=== PATIENT | female | born 1955 | race Caucasian/White ===

== ENCOUNTER 2017-01-22 12:01 | Emergency (ER) | payer OTHER ==
[2017-01-22 12:16] VITALS: BP 112/54
--- NOTE | 2017-01-22 12:35 | UC ---
Abdominal Pain Female HPI - HPI Summary HPI Summary: 62 yo female with the onset of lower abd pain yesterday seems to have localized to RLQ no f/c n/v loose stool x a anorexic no UTI symptoms no abd surgeries - History of Current Complaint Chief Complaint: UCAbdominalPain Stated Complaint: ABDOMINAL PAIN Time Seen by Provider: 01/22/17 12:21 Hx Obtained From: Patient Onset/Duration: Sudden Onset - fairly sudden onset yesterday 1 PM, Lasting Hours Timing: Constant Severity Initially: Severe - 9-10 Severity Currently: Severe Pain Intensity: 8 Pain Scale Used: 0-10 Numeric Location: Discrete At: RLQ, Other Radiates: No Character: Colicy Aggravating Factor(s): Food, Movement, Deep Breaths Alleviating Factor(s): Position Associated Signs and Symptoms: Positive: Diaphoresis - x1, Nausea, Vomiting Allergies/Adverse Reactions: Allergies Allergy/AdvReac Type Severity Reaction Status Date / Time Clarithromycin [From Biaxin] Allergy Nausea Verified 01/22/17 12:16 Home Medications: Home Medications Ibuprofen [Advil] 400 mg PO Q6H PRN 01/22/17 [History Confirmed 01/22/17] PMH/Surg Hx/FS Hx/Imm Hx Previously Healthy: Yes - Surgical History Surgical History: Yes Surgery Procedure, Year, and Place: LAMINECTOMY L1 OR L2; D&C x2; - Family History Known Family History: Positive: Hypertension - Social History Alcohol Use: Occasionally Substance Use Type: None Smoking Status (MU): Never Smoked Tobacco - Immunization History Most Recent Influenza Vaccination: none Review of Systems Constitutional: Negative Skin: Negative Eyes: Negative ENT: Negative Respiratory: Negative Cardiovascular: Negative Gastrointestinal: Abdominal Pain, Vomiting, Nausea Genitourinary: Negative Motor: Negative Neurovascular: Negative Musculoskeletal: Negative Neurological: Negative Psychological: Negative Is Patient Immunocompromised?: No All Other Systems Reviewed And Are Negative: Yes Physical Exam Triage Information Reviewed: Yes Appearance: Ill-Appearing, Pain Distress Vital Signs: Initial Vital Signs Temp 97.7 F 01/22/17 12:10 Pulse 98 01/22/17 12:10 Resp 16 01/22/17 12:10 BP 112/54 01/22/17 12:10 Pulse Ox 100 01/22/17 12:10 Vital Signs Reviewed: Yes Eyes: Positive: Conjunctiva Clear ENT: Positive: Hearing grossly normal. Negative: Nasal congestion, Nasal drainage, Muffled voice, Hoarse voice Neck: Positive: Supple, Nontender, No Lymphadenopathy Respiratory: Positive: Lungs clear, Normal breath sounds, No respiratory distress, No accessory muscle use Cardiovascular: Positive: RRR, No Murmur Abdomen Description: Positive: Soft, Other: - marked tender RLQ>LUQ. Negative: Nontender, CVA Tenderness (R), CVA Tenderness (L) Musculoskeletal: Positive: ROM Intact, No Edema Neurological: Positive: Alert Psychological Exam: Normal Skin Exam: Normal Abd Pain Female Course/Dx - Course Course Of Treatment: pt declines analgesic here. d/w Dr Bennett accepts pt. to [facility] via EMS - Differential Dx/Diagnosis Provider Diagnoses: Abdominal pain of uncertain cause Discharge - Discharge Plan Condition: Fair Disposition: TRANS HIGHER LVL OF CARE FAC Referrals: Leanna Espinal MD [Primary Care Provider] -
[2017-01-22] MEDS ORDERED: NS 0.9% 1000 ML* 1,000 ML IV ONE (12:36)
[2017-01-22] MEDS ORDERED: Ondansetron INJ* 2 MG/ML VIAL IV ONE (12:37)
== END 2017-01-22 13:10 | disposition short-term general hospital (02) ==
LOC: UCEAST 12:01
DX: R10.31 Right lower quadrant pain (principal)
CPT/HCPCS: 81003; 87077; 87086; 99213; G0463

== ENCOUNTER 2017-01-22 13:32 | Inpatient (IN) | payer OTHER ==
[2017-01-22] MEDS ORDERED: NS 0.9% 1000 ML* 2,000 ML IV ONE (15:09)
[2017-01-22 15:18] LABS: Hematocrit 36 % (35-47); Mean Corpuscular HGB Conc 33 g/dl (31-36); Mean Corpuscular Hemoglobin 29 pg (27-31); Mean Corpuscular Volume 87 fL (80-97); Mean Platelet Volume 8 um3 (7.4-10.4); Red Blood Count 4.11 10^6/ul (4.0-5.4); Red Cell Distribution Width 13 % (10.5-15)
[2017-01-22 15:28] LABS: Urine Bacteria 2+ (Absent); Urine Bilirubin Negative (Negative); Urine Glucose Negative (Negative); Urine Nitrite Negative (Negative)
[2017-01-22 15:29] LABS: Albumin 3.9 g/dL (3.2-5.2); BUN/Creatinine Ratio 15.5 (8-20); C Reactive Protein 217.81 mg/L (< 5.00); Calcium 9.1 mg/dL (8.6-10.3); EGFR African American 54.2 (>60); EGFR Non-African American 42.2 (>60); Globulin 2.9 g/dL (2-4); Potassium 3.4 mmol/L (3.5-5.0); Total Bilirubin 0.7 mg/dL (0.2-1.0); Total Protein 6.8 g/dL (6.4-8.9)
--- NOTE | 2017-01-22 15:37 | RAD ---
Indication: Chest pain. 2 views of the chest including dual energy PA views demonstrate no mediastinal shift. Heart is of normal size and configuration. Lungs are clear. IMPRESSION: No active cardiopulmonary disease is noted.
[2017-01-22] MEDS ORDERED: Iodixanol* (CONTRAST) 320 MG/ML 100 ML SDV IV ONE (16:13)
[2017-01-22] MEDS ORDERED: Piperacillin/Tazobac ADVAN(*) 3.375 GM in NS 0.9% 100 ML* 100 ML IVPB ONE (16:33)
[2017-01-22] MEDS ORDERED: Morphine INJ* 4 MG/ML 1 ML CARPUJECT IV ONE (16:33)
[2017-01-22] MEDS ORDERED: Ondansetron INJ* 2 MG/ML VIAL IV ONE (16:33)
[2017-01-22] MEDS ORDERED: Piperacillin/Tazobac (*) 3.375 GM BAG ONE (16:38)
--- NOTE | 2017-01-22 18:11 | RAD ---
INDICATION: Upper abdominal pain. Previous back surgery. COMPARISON: No relevant prior exams available on the [facility] PACS for comparison. TECHNIQUE: Multidetector CT images were obtained from the lung bases to the ischial tuberosities with 85 mL Visipaque 320 IV and oral contrast. Multiplanar reformation. REPORT: Unremarkable visualized inferior thorax. Sharply circumscribed 2.2 cm subcapsular cyst at the RIGHT posterior hepatic segment. Negative for suspicious hepatic lesions or biliary dilatation. No CT abnormality of the gallbladder, pancreas, spleen. Negative for CT abnormality of the upper GI. Mild mural thickening at the terminal ileum which appears secondary to adjacent appendiceal inflammation. Ill-defined 1.2 cm diameter medially extending appendix from the cecum anterior to the iliac vessels consistent with acute appendicitis. Mild periappendiceal inflammatory change. Negative for periappendiceal abscess. Enteric contrast extends to the rectum. Mild thickening at the cecal caput secondary to appendicitis without additional abnormality of the colon. Minimal free fluid at the dependent pelvis. Negative for free air. Negative for hernias. Normal adrenal glands. Symmetric nephrograms and pyelograms. Subcentimeter probable cortical cyst at the posterior midpole the LEFT kidney. No suspicious focal renal lesions evident. Unremarkable ureters, urinary bladder, anteverted uterus, adnexal regions. Negative for lymphadenopathy. Atherosclerotic calcification of normal diameter abdominal aorta and iliac arteries. Physiologic distention of the IVC. Negative for suspicious osseous lesions. Diaz images saved on the [facility] PACS. IMPRESSION: Acute appendicitis without perienteric abscess or resulting bowel obstruction. Results discussed with Dr. Pritchett 01/22/2017 6:08 PM EST
--- NOTE | 2017-01-22 18:18 | ED ---
Luis Medina Gabriel, scribed for Boone Pritchett MD on 01/22/17 at 1509 . Abdominal Pain/Female - HPI Summary HPI Summary: This patient is a 62 year old F BIBA to [facility] accompanied by with a chief complaint of ABD since yesterday at 1300. The patient rates the pain 7/10 in severity. Patient reports diarrhea and nausea. Patient denies melena, vomiting and dysuria. - History of Current Complaint Chief Complaint: EDAbdPain Stated Complaint: ABD PAIN Time Seen by Provider: 01/22/17 14:57 Hx Obtained From: Patient Onset/Duration: Gradual Onset, Still Present Timing: Constant Pain Intensity: 7 Pain Scale Used: 0-10 Numeric Location: Diffuse - through entire ABD Allergies/Adverse Reactions: Allergies Allergy/AdvReac Type Severity Reaction Status Date / Time Clarithromycin [From Biaxin] Allergy Nausea Verified 01/22/17 12:16 Home Medications: Home Medications LORazepam TAB(*) [Ativan 1 MG TAB (*)] 1 mg PO DAILY PRN 01/22/17 [History Confirmed 01/22/17] PMH/Surg Hx/FS Hx/Imm Hx Previously Healthy: No Musculoskeletal History: Denies: Hx Osteoporosis - Surgical History Surgery Procedure, Year, and Place: LAMINECTOMY L1 OR L2; D&C x2; Infectious Disease History: No Infectious Disease History: Denies: Traveled Outside the [place] in Last 30 Days - Family History Known Family History: Positive: Hypertension - Social History Alcohol Use: None Substance Use Type: Reports: None Smoking Status (MU): Never Smoked Tobacco Review of Systems Gastrointestinal: Negative - melena Positive: Abdominal Pain, Diarrhea, Nausea. Negative: Vomiting Negative: dysuria All Other Systems Reviewed And Are Negative: Yes Physical Exam Triage Information Reviewed: Yes Vital Signs On Initial Exam: Initial Vitals Temp Pulse Resp BP Pulse Ox 98.6 F 75 17 127/75 100 01/22/17 13:34 01/22/17 13:34 01/22/17 13:34 01/22/17 13:34 01/22/17 13:34 Vital Signs Reviewed: Yes Appearance: Positive: Well-Appearing, No Pain Distress Skin: Positive: Warm Head/Face: Positive: Normal Head/Face Inspection Eyes: Positive: EOMI Neck: Positive: Nontender Respiratory/Lung Sounds: Positive: Clear to Auscultation, Breath Sounds Present Cardiovascular: Positive: RRR. Negative: Murmur Abdomen Description: Positive: Other: - tender both lower quadrants of the abdomen Musculoskeletal: Positive: Strength/ROM Intact Neurological: Positive: Sensory/Motor Intact, Alert, Oriented to Person Place, Time, CN Intact II-III Psychiatric: Positive: Normal - Vega Coma Scale Best Eye Response: 4 - Spontaneous Best Motor Response: 6 - Obeys Commands Best Verbal Response: 5 - Oriented Coma Scale Total: 15 Diagnostics - Vital Signs Vital Signs Temp Pulse Resp BP Pulse Ox 01/22/17 14:42 99.2 F 79 18 128/55 99 01/22/17 13:34 98.6 F 75 17 127/75 100 - Laboratory Lab Results: Lab Results 01/22/17 01/22/17 01/22/17 Range/Units 14:35 14:35 14:35 WBC 15.0 H (3.5-10.8) 10^3/ul RBC 4.11 (4.0-5.4) 10^6/ul Hgb 12.0 (12.0-16.0) g/dl Hct 36 (35-47) % MCV 87 (80-97) fL MCH 29 (27-31) pg MCHC 33 (31-36) g/dl RDW 13 (10.5-15) % Plt Count 182 (150-450) 10^3/ul MPV 8 (7.4-10.4) um3 Neut % (Auto) 86.0 H (38-83) % Lymph % (Auto) 10.0 L (25-47) % Alger % (Auto) 3.6 (1-9) % Eos % (Auto) 0.1 (0-6) % Baso % (Auto) 0.3 (0-2) % Absolute Neuts (auto) 12.9 H (1.5-7.7) 10^3/ul Absolute Lymphs (auto) 1.5 (1.0-4.8) 10^3/ul Absolute Monos (auto) 0.5 (0-0.8) 10^3/ul Absolute Eos (auto) 0 (0-0.6) 10^3/ul Absolute Basos (auto) 0 (0-0.2) 10^3/ul Absolute Nucleated RBC 0 10^3/ul Nucleated RBC % 0 Sodium 137 (133-145) mmol/L Potassium 3.4 L (3.5-5.0) mmol/L Chloride 103 (101-111) mmol/L Carbon Dioxide 26 (22-32) mmol/L Anion Gap 8 (2-11) mmol/L BUN 20 (6-24) mg/dL Creatinine 1.29 H (0.51-0.95) mg/dL Est GFR ( Amer) 54.2 (>60) Est GFR (Non-Af Amer) 42.2 (>60) BUN/Creatinine Ratio 15.5 (8-20) Glucose 100 (70-100) mg/dL Lactic Acid 1.3 (0.5-2.0) mmol/L Calcium 9.1 (8.6-10.3) mg/dL Total Bilirubin 0.70 (0.2-1.0) mg/dL AST 18 (13-39) U/L ALT 15 (7-52) U/L Alkaline Phosphatase 65 (34-104) U/L C-Reactive Protein 217.81 H (< 5.00) mg/L Total Protein 6.8 (6.4-8.9) g/dL Albumin 3.9 (3.2-5.2) g/dL Globulin 2.9 (2-4) g/dL Albumin/Globulin Ratio 1.3 (1-3) Lipase 14 (11.0-82.0) U/L Urine Color Urine Appearance Urine pH (5-9) Ur Specific Macfarlan (1.010-1.030) Urine Protein (Negative) Urine Ketones (Negative) Urine Blood (Negative) Urine Nitrate (Negative) Urine Bilirubin (Negative) Urine Urobilinogen (Negative) Ur Leukocyte Esterase (Negative) Urine WBC (Auto) (Absent) Urine RBC (Auto) (Absent) Ur Squamous Epith Cells (Absent) Urine Bacteria (Absent) Urine Glucose (Negative) 01/22/ Range/Units 15:17 WBC (3.5-10.8) 10^3/ul RBC (4.0-5.4) 10^6/ul Hgb (12.0-16.0) g/dl Hct (35-47) % MCV (80-97) fL MCH (27-31) pg MCHC (31-36) g/dl RDW (10.5-15) % Plt Count (150-450) 10^3/ul MPV (7.4-10.4) um3 Neut % (Auto) (38-83) % Lymph % (Auto) (25-47) % Alger % (Auto) (1-9) % Eos % (Auto) (0-6) % Baso % (Auto) (0-2) % Absolute Neuts (auto) (1.5-7.7) 10^3/ul Absolute Lymphs (auto) (1.0-4.8) 10^3/ul Absolute Monos (auto) (0-0.8) 10^3/ul Absolute Eos (auto) (0-0.6) 10^3/ul Absolute Basos (auto) (0-0.2) 10^3/ul Absolute Nucleated RBC 10^3/ul Nucleated RBC % Sodium (133-145) mmol/L Potassium (3.5-5.0) mmol/L Chloride (101-111) mmol/L Carbon Dioxide (22-32) mmol/L Anion Gap (2-11) mmol/L BUN (6-24) mg/dL Creatinine (0.51-0.95) mg/dL Est GFR ( Amer) (>60) Est GFR (Non-Af Amer) (>60) BUN/Creatinine Ratio (8-20) Glucose (70-100) mg/dL Lactic Acid (0.5-2.0) mmol/L Calcium (8.6-10.3) mg/dL Total Bilirubin (0.2-1.0) mg/dL AST (13-39) U/L ALT (7-52) U/L Alkaline Phosphatase (34-104) U/L C-Reactive Protein (< 5.00) mg/L Total Protein (6.4-8.9) g/dL Albumin (3.2-5.2) g/dL Globulin (2-4) g/dL Albumin/Globulin Ratio (1-3) Lipase (11.0-82.0) U/L Urine Color Straw Urine Appearance Clear Urine pH 6.0 (5-9) Ur Specific Macfarlan 1.006 L (1.010-1.030) Urine Protein Negative (Negative) Urine Ketones Trace H (Negative) Urine Blood 2+ H (Negative) Urine Nitrate Negative (Negative) Urine Bilirubin Negative (Negative) Urine Urobilinogen Negative (Negative) Ur Leukocyte Esterase Trace H (Negative) Urine WBC (Auto) 1+(6-10/hpf) H (Absent) Urine RBC (Auto) 1+(3-5/hpf) H (Absent) Ur Squamous Epith Cells Present H (Absent) Urine Bacteria 2+ H (Absent) Urine Glucose Negative (Negative) Result Diagrams: 01/22/17 14:35 01/22/17 14:35 Lab Statement: Any lab studies that have been ordered have been reviewed, and results considered in the medical decision making process. - Radiology CXR Radiology Interpretation Completed By: Radiologist - No active cardiopulmonary disease is noted. ED physician has reviewed this radiology report and agrees. - CT CT ABD/Pelvis CT Interpretation Completed By: Radiologist - Acute appendicitis without perienteric abscess or resulting bowel obstruction. ED physician has reviewed this radiology report and agrees. Abdominal Pain Fem Course/Dx - Course Course Of Treatment: 62 yr old with appendicitis. General surgery Dr Simental notified at 1810 and he will see the patient. - Diagnoses Provider Diagnoses: Acute appendicitis Discharge - Discharge Plan Condition: Good Disposition: ADMITTED TO [facility] Referrals: Leanna Espinal MD [Primary Care Provider] - The documentation as recorded by the Luis harris Gabriel accurately reflects the service I personally performed and the decisions made by Shreyas mckeon Walter, MD.
[2017-01-22] MEDS ORDERED: Bupivacaine 0.25% SDV* 30 ML ONE (18:21)
[2017-01-22] MEDS ORDERED: fentaNYL* 50 MCG/ML 2 ML VIAL (100 MCG VIAL) ONE (19:05)
[2017-01-22] MEDS ORDERED: Midazolam* 1 MG/ML 2 ML VIAL (2 MG) ONE (19:05)
[2017-01-22] MEDS ORDERED: Scopolamine 1.5 mg* PATCH ONE (19:06)
[2017-01-22] MEDS ORDERED: Rocuronium* 10 MG/ML VIAL ONE (19:08)
[2017-01-22] MEDS ORDERED: Dexamethasone IV* 4 MG/ML 1 ML (4 MG) ONE (19:30)
[2017-01-22] MEDS ORDERED: Glycopyrrolate IV* 0.2 MG/ML 1 ML VIAL ONE (19:47)
[2017-01-22] MEDS ORDERED: Neostigmine Methylsulfate* 2 MG/2 ML SYRINGE ONE (19:47)
[2017-01-22] MEDS ORDERED: Ondansetron INJ* 2 MG/ML VIAL ONE (19:47)
[2017-01-22] MEDS ORDERED: Propofol* 10 MG/ML 20 ML BTL IV PUSH ONE (19:47)
[2017-01-22] MEDS ORDERED: Ketorolac INJ* 30 MG/ML 1 ML VIAL ONE (19:47)
[2017-01-22] MEDS ORDERED: fentaNYL* 50 MCG/ML 2 ML VIAL (100 MCG VIAL) IV PRN (19:57)
[2017-01-22] MEDS ORDERED: HYDROmorphone INJ* 1 MG/ML CARPUJECT SYRINGE IV PRN (19:57)
[2017-01-22] MEDS ORDERED: diPHENhydraMINE IV* 50 MG/ML 1 ml VIAL (BENADRYL) IV PRN (19:57)
[2017-01-22] MEDS ORDERED: Morphine INJ* 2 MG/ML 1 ML SYRINGE (TWO MG - NEW SYRINGE VERSION) IV PRN (21:54)
[2017-01-22] MEDS: NS 0.9% 1000 ML* 1,000 ML IV SCH (22:30)
[2017-01-22] MEDS ORDERED: Zosyn per Pharmacy* NOTE FOLLOW UP PRN (23:19)
[2017-01-22] MEDS: Piperacillin/Tazobac ADVAN(*) 3.375 GM in NS 0.9% 100 ML* 100 ML IVPB SCH (23:34)
[2017-01-23] MEDS: Acetaminophen TAB* 325 MG PO PRN ×3 (02:45→19:29)
--- NOTE | 2017-01-23 02:53 | HP ---
CC: [facility]; Dr. Leanna Espinal at the [facility] * HISTORY AND PHYSICAL: DATE OF ADMISSION: 01/22/17 REASON FOR CONSULTATION/ADMISSION: Lower quadrant abdominal pain, worse on the right. 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 She states this pain started yesterday with generalized abdominal pain about 1 o 'clock in the afternoon. This was associated with some nausea without persistent vomiting. She had 1 loose bowel movement yesterday. She slept fairly well yesterday, but the pain became more severe in the right lower quadrant when she woke up this morning and she went to the urgent care center and was sent to the emergency room for further evaluation. She denies any fevers, shakes or chills. She has had no urinary complaints. She is postmenopausal. There has been no vaginal bleeding. In the emergency room, she was noted to be afebrile. Her heart rate was in the low 90s with a systolic blood pressure of 111/47. Laboratory values include a white blood cell count of 15,000 with a slight shift. Lactic acid was normal. She has elevated C-reactive protein at 217. BUN and creatinine of 20 and 1.3 and her LFTs were normal. She does state that several months ago, she had some similar lower abdominal discomfort that lasted for about 24 hours and resolved spontaneously. She did see her motor adjuster at that time and had a pelvic ultrasound. I do not have these results. Apparently, this was in the office and this was unremarkable, and her pain was not felt to be of gynecologic origin. She underwent a CT scan of the abdomen and pelvis. I did review these images. This shows findings consistent with acute appendicitis with a dilated appendix with some periappendiceal inflammation in the right lower quadrant. There was some free fluid in the pelvis, also noted was a cyst in the right liver. Surgical consultation was obtained. PAST MEDICAL HISTORY: Anxiety. PAST SURGICAL HISTORY: Low back surgery. MEDICATIONS: Include: 1. Ativan 1 mg p.r.n. 2. Ibuprofen p.r.n. ALLERGIES: She is allergic to BIAXIN. SOCIAL HISTORY: She does not use tobacco or alcohol. She is , has grown children. 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 REVIEW OF SYSTEMS: Cerebrovascular: No dizziness or visual disturbances. Cardiovascular: No chest pain, shortness of breath. Pulmonary: No wheezing or hemoptysis. GI: As per above. She has no chronic abdominal discomfort. She has had no change in her bowel habits. She underwent a colonoscopy about 5 years ago, which was normal and is on a routine screening and these are to be done on a routine screening basis of average risk. PHYSICAL EXAMINATION GENERAL: She is a slender female who appears to be somewhat uncomfortable, but awake, alert and conversive, oriented x3. VITAL SIGNS: She is afebrile, pulse 94, blood pressure 111/47. HEENT: Her oral mucosa is dry. Sclerae anicteric. LUNGS: Clear to auscultation with normal respiratory effort. HEART: Regular rate and rhythm without murmurs, rubs, or gallops. ABDOMEN: Slightly distended and firm. She has no prior surgical incisions or hernias. She has diminished bowel sounds throughout. There are no hernias noted. She has tenderness in the right lower quadrant and suprapubic area, but worse on the right. She has some voluntary guarding and rigidity. There is mild tenderness in the left lower quadrant as well. There is no generalized peritoneal irritation. EXTREMITIES: Show no cyanosis or edema. LABORATORY DATA: I did review the images of the CT scan. IMPRESSION: Acute appendicitis. PLAN: I had a long discussion with the patient and her who was present in the emergency room about her history, physical exam and workup that is all consistent with acute appendicitis. I am not certain of the etiology of the discomfort she had several months ago, but that had resolved. It certainly may have been related to the appendix as well. After our discussion about the pathophysiology of acute appendicitis and the findings, I do recommend that she undergo a laparoscopic appendectomy this evening and they are in agreement. Laparoscopic appendectomy. I discussed the procedure with the patient and her . The risks of but not limited to bleeding, infection, intraabdominal abscess formation, injury to peritoneal and retroperitoneal structures, possibilities of an open procedure, possibility of other indicated surgical procedures that may need to be performed that would be done depending on clinic findings at laparoscopy. We also discussed the possibility of an open appendectomy. Risks of general anesthesia, deep vein thrombosis, hospital stay and recovery times were also discussed briefly. We will proceed this evening. [id number]/[facility] #: [id number] FA[facility]TON HOSPITALCurtis
[2017-01-23 05:12] LABS: Hematocrit 32 % (35-47); Hemoglobin 10.9 g/dl (12.0-16.0); Mean Corpuscular HGB Conc 34 g/dl (31-36); Mean Corpuscular Hemoglobin 30 pg (27-31); Mean Corpuscular Volume 88 fL (80-97); Mean Platelet Volume 8 um3 (7.4-10.4); Red Blood Count 3.65 10^6/ul (4.0-5.4); Red Cell Distribution Width 13 % (10.5-15); White Blood Count 13.7 10^3/ul (3.5-10.8)
[2017-01-23 05:27] LABS: BUN/Creatinine Ratio 15.8 (8-20); Calcium 8.2 mg/dL (8.6-10.3); EGFR African American 71.9 (>60); EGFR Non-African American 55.9 (>60); Potassium 4.1 mmol/L (3.5-5.0)
[2017-01-23] MEDS: NS 0.9% 1000 ML* 1,000 ML IV SCH ×3 (06:48→22:58)
[2017-01-23] MEDS: Piperacillin/Tazobac ADVAN(*) 3.375 GM in NS 0.9% 100 ML* 100 ML IVPB SCH ×3 (07:19→22:55)
[2017-01-23] MEDS ORDERED: Influenza VAC *QUAD* 2017-18* 0.5 ML SYRINGE IM ONE (09:00)
[2017-01-23] MEDS ORDERED: oxyCODONE/Acetamin 5/325 MG* TAB PO PRN (09:23)
--- NOTE | 2017-01-23 09:30 | PN ---
Progress Note - Progress Note Date of Service: 01/23/17 SOAP: Subjective: Feels better today Incisional pain controlled with tylenol Tolerating some liquids Objective: Temp Pulse Resp BP Pulse Ox 98.1 F 72 18 106/54 94 01/23/17 07:47 01/23/17 07:47 01/23/17 08:00 01/23/17 07:47 01/23/17 07:47 Intake & Output 01/21/17 01/22/17 01/23/17 01/24/17 06:59 06:59 06:59 06:59 Intake Total 5295 Output Total 335 Balance 4960 Weight 150 lb Intake: IV Fluids 5045 LR 1850 Oral 250 Output: ANDREW #1 85 Urine 250 PEX: Comfortable Awake and alert Lungs are clear Abd is soft and slightly distended. A few bowel sounds are present. Incisions are clean and dry. ANDREW in place with thin serous fluid in bulb Ext without edema Laboratory Last Values WBC 13.7 10^3/ul (3.5-10.8) H 01/23/17 04:45 RBC 3.65 10^6/ul (4.0-5.4) L 01/23/17 04:45 Hgb 10.9 g/dl (12.0-16.0) L 01/23/17 04:45 Hct 32 % (35-47) L 01/23/17 04:45 MCV 88 fL (80-97) 01/23/17 04:45 MCH 30 pg (27-31) 01/23/17 04:45 MCHC 34 g/dl (31-36) 01/23/17 04:45 RDW 13 % (10.5-15) 01/23/17 04:45 Plt Count 164 10^3/ul (150-450) 01/23/17 04:45 MPV 8 um3 (7.4-10.4) 01/23/17 04:45 Neut % (Auto) 92.4 % (38-83) H 01/23/17 04:45 Lymph % (Auto) 6.4 % (25-47) L 01/23/17 04:45 Sharkey % (Auto) 1.0 % (1-9) 01/23/17 04:45 Eos % (Auto) 0 % (0-6) 01/23/17 04:45 Baso % (Auto) 0.2 % (0-2) 01/23/17 04:45 Absolute Neuts (auto) 12.7 10^3/ul (1.5-7.7) H 01/23/17 04:45 Absolute Lymphs (auto) 0.9 10^3/ul (1.0-4.8) L 01/23/17 04:45 Absolute Monos (auto) 0.1 10^3/ul (0-0.8) 01/23/17 04:45 Absolute Eos (auto) 0 10^3/ul (0-0.6) 01/23/17 04:45 Absolute Basos (auto) 0 10^3/ul (0-0.2) 01/23/17 04:45 Absolute Nucleated RBC 0.01 10^3/ul 01/23/17 04:45 Nucleated RBC % 0 01/23/17 04:45 Sodium 135 mmol/L (133-145) 01/23/17 04:45 Potassium 4.1 mmol/L (3.5-5.0) 01/23/17 04:45 Chloride 106 mmol/L (101-111) 01/23/17 04:45 Carbon Dioxide 20 mmol/L (22-32) L 01/23/17 04:45 Anion Gap 9 mmol/L (2-11) 01/23/17 04:45 BUN 16 mg/dL (6-24) 01/23/17 04:45 Creatinine 1.01 mg/dL (0.51-0.95) H 01/23/17 04:45 Est GFR ( Amer) 71.9 (>60) 01/23/17 04:45 Est GFR (Non-Af Amer) 55.9 (>60) 01/23/17 04:45 BUN/Creatinine Ratio 15.8 (8-20) 01/23/17 04:45 Glucose 137 mg/dL (70-100) H 01/23/17 04:45 Lactic Acid 1.3 mmol/L (0.5-2.0) 01/22/17 14:35 Calcium 8.2 mg/dL (8.6-10.3) L 01/23/17 04:45 Total Bilirubin 0.70 mg/dL (0.2-1.0) 01/22/17 14:35 AST 18 U/L (13-39) 01/22/17 14:35 ALT 15 U/L (7-52) 01/22/17 14:35 Alkaline Phosphatase 65 U/L (34-104) 01/22/17 14:35 C-Reactive Protein 217.81 mg/L (< 5.00) H 01/22/17 14:35 Total Protein 6.8 g/dL (6.4-8.9) 01/22/17 14:35 Albumin 3.9 g/dL (3.2-5.2) 01/22/17 14:35 Globulin 2.9 g/dL (2-4) 01/22/17 14:35 Albumin/Globulin Ratio 1.3 (1-3) 01/22/17 14:35 Lipase 14 U/L (11.0-82.0) 01/22/17 14:35 Urine Color Straw 01/22/17 15:17 Urine Appearance Clear 01/22/17 15:17 Urine pH 6.0 (5-9) 01/22/17 15:17 Ur Specific Davy 1.006 (1.010-1.030) L 01/22/17 15:17 Urine Protein Negative (Negative) 01/22/17 15:17 Urine Ketones Trace (Negative) H 01/22/17 15:17 Urine Blood 2+ (Negative) H 01/22/17 15:17 Urine Nitrate Negative (Negative) 01/22/17 15:17 Urine Bilirubin Negative (Negative) 01/22/17 15:17 Urine Urobilinogen Negative (Negative) 01/22/17 15:17 Ur Leukocyte Esterase Trace (Negative) H 01/22/17 15:17 Urine WBC (Auto) 1+(6-10/hpf) (Absent) H 01/22/17 15:17 Urine RBC (Auto) 1+(3-5/hpf) (Absent) H 01/22/17 15:17 Ur Squamous Epith Cells Present (Absent) H 01/22/17 15:17 Urine Bacteria 2+ (Absent) H 01/22/17 15:17 Urine Glucose Negative (Negative) 01/22/17 15:17 Assessment: POD# 1 s/p lap appy for acute appendicitis with purulent peritonitis Plan: Continue IV Zosyn Increase po, activity PPI and subq heparin Leave ANDREW in for now OR findings discussed with patient and her .
[2017-01-23] MEDS: Famotidine IV* 10 MG/ML 2 ML (20 mg) IV SLOW PU SCH ×2 (10:24→21:06)
[2017-01-23] MEDS: Heparin VIAL(*) 5000 UNITS/ML VIAL (FIVE THOUSAND) SUBCUT SCH ×2 (15:00→22:55)
[2017-01-23] MEDS: Ketorolac INJ* 15 MG/ML 1 ML VIAL IV PUSH PRN (16:48)
--- NOTE | 2017-01-23 18:05 | OP ---
CC: Dr. Leanna Espinal * DATE OF OPERATION: 01/22/17 - ROOM #334 DATE OF : 59 SURGEON: Johan Simental MD ANESTHESIOLOGIST: Dr. Darden. ANESTHESIA: General with local. PRE-OP DIAGNOSIS: Acute appendicitis. POST-OP DIAGNOSIS: Acute retrocecal appendicitis with purulent peritonitis. OPERATIVE PROCEDURE: Laparoscopic appendectomy. ESTIMATED BLOOD LOSS: Minimal. IV FLUIDS: 2 L of crystalloid. SPECIMENS: Appendix. DRAINS: #10 ANDREW drain in the right lower quadrant. WOUND CLASSIFICATION: IV. COMPLICATIONS: None. FINDINGS: There was noted to be purulent fluid in the pelvis, right lower quadrant extending up along the right lateral gutter over the liver. There appeared to be some chronic inflammation involving the cecum to the lateral anterior wall from apparent previous inflammatory process. The appendix was retrocecal but did not show evidence of perforation or gangrene. BRIEF HISTORY: Marilee SimiQuin is a 62-year-old woman who presented to the emergency room with over 24 hours of severe lower quadrant abdominal discomfort. This started some time early yesterday and became quite severe. [facility] to the emergency room. She was noted to have significant tenderness in lower quadrants, right greater than left and white blood cell count of 15,000. A CAT scan of the abdomen and pelvis showed findings consistent with acute appendicitis with free pelvic fluid and no other acute findings. Of note, she states about 2 months ago, she had a similar episode of pain. It lasted about 24 hours and made her quite uncomfortable but resolved spontaneously. She since had a gynecologic ultrasound, which was unremarkable. After reviewing her history and physical exam as well as CT scan findings, she is now to be taken to the operating room for an appendectomy. The procedure including the risks and benefits were discussed with the patient and her and documented in the preoperative history and physical. DESCRIPTION OF PROCEDURE: Written informed consent was obtained, the abdomen was marked with indelible ink, and preoperative antibiotics had been administered in the emergency room. The patient was taken to the operating room and placed in the supine position. Sequential compression devices and a warming blanket were applied. General anesthesia was administered, and the abdomen was prepped and draped in the usual sterile fashion. Time-out verification was completed. Initially, a small transverse incision was made just above the umbilicus. The midline fascia was divided and the peritoneal cavity was entered under direct vision. A 12-mm blunt port was inserted and the abdomen was insufflated to 15 mmHg. Camera was inserted and it was obvious that there was quite a bit of purulence consistent with purulent peritonitis in the pelvis, right lower quadrant extending up to the liver edge. The omentum was adherent to the anterior abdominal wall and this was taken down bluntly. I placed a 5 mm port in the left lower abdominal wall and a second 5 mm port in the suprapubic position. The omentum was then freed up from its acute adhesions and the patient was placed in Trendelenburg and this reflected up nicely along with transverse colon. Terminal ileum did appear to be normal, however, it was inflamed and although was somewhat edematous, quite adherent to the cecum and to the lateral pelvic wall. Also noted was purulence and some thickening along the cecum to the right lateral abdominal wall, which appeared to be more chronic in nature. I was able to visualize the uterus and the right ovary and fallopian tube. These were normal. What I could see of the sigmoid colon was also unremarkable. When I was able to reflect the terminal ileum up out of the pelvis, there was quite a bit of fibrin and "rind" adherent to the retroperitoneum and lateral anterior wall. I needed to divide some attachments from the terminal ileum to the lateral abdominal wall with sharp dissection to follow this up to the cecum. Also noted in the cecum, there appeared to have some chronic inflammatory adhesions to the lateral abdominal wall, not permitting me to actually identify the appendix, but once I was able to divide some of these sharply to reflect the cecum up more superiorly, I was able to find underneath the terminal ileum and cecum a short stubby appendix, which was inflamed and indurated and its mesentery was quite edematous. The appendix did appear to have extended down into the area with quite a bit of the fibrin/rind deposition consistent with acute upon chronic inflammation. I then proceeded to further mobilize the lateral cecal attachments to identify and follow the appendix up underneath the cecum and went back into its retrocecal position. Care was taken to prevent injury to the cecum and the terminal ileum. Once I followed the appendix up underneath the cecum to its base, the cecal serosa appeared to be soft and supple and once I satisfied myself, the entire appendix was dissected. I divided the base with EndoGIA purple load of a 45 mm stapler. The appendix was placed in the EndoCatch bag and brought out through the umbilical incision. I then irrigated the right lower quadrant and pelvis all the way up around the liver and gallbladder area until clear. Staple line appeared to be intact without bleeding. I have examined the area of the cecum, which I had mobilized up along the lateral anterior wall and there appeared to be no evidence of injury. The terminal ileum once again appeared to be unremarkable other than being edematous. A #10 ANDREW drain was placed into the pelvis and brought out through a stab wound in the right lower quadrant of the abdominal wall. All ports were then removed under direct vision of the camera. There was no abdominal wall bleeding. The umbilical fascia was closed with interrupted 0 Polysorb suture. The skin at all 3 incisions was approximated with subcuticular 4- 0 Vicryl suture. Steri-Strips were applied. A drain sponge was also placed. The patient tolerated the procedure well and was taken to the recovery room in stable condition. [id number]/[facility] #: [id number] DEREK
[2017-01-23] MEDS: Ondansetron INJ* 2 MG/ML VIAL IV PRN (21:06)
[2017-01-23] MEDS ORDERED: LORazepam TAB(*) 1 MG PO PRN (22:27)
[2017-01-23] MEDS ORDERED: LORazepam TAB(*) 1 MG ONE (22:54)
--- NOTE | 2017-01-24 04:25 | PN ---
Progress Note - Progress Note Date of Service: 01/24/17 Note: Asked by Dr. Gil to see patient re dyspnea, tachypnea, and anxiety. Patient is post-op day 2 from appendectomy, for perforated appendicitis. Overnight she had 2 panic attacks, did not respond to ativan. At baseline a home , occasionally uses ativan for panic. Within last hour, has had some dyspnea, and O2 sat dropping in low 90s, improved w/ O2 2-3 L NC. Denies h/o asthma, COPD, non-smoker. Denies leg pain or swelling. Denies chest pain, has mild abdominal pain. Tolerating clear liquid diet, has IV fluid running at 125 ml/hr. Patient has been oriented to place/time/etc, but has been somewhat confused per nursing. While I was in the room, she was mentioning her as if he might be here, though it is the middle of the night. Selected Entries 01/24/17 01/24/17 01/24/17 01:09 02:59 03:29 Temperature 36.9 C 36.6 C Pulse Rate 73 84 Respiratory 15 26 16 Rate Blood Pressure 132/57 139/71 (mmHg) O2 Sat by Pulse 92 93 Oximetry Patient on Room No: 3L No Air Laboratory Tests 01/22/17 01/22/17 01/23/17 14:35 14:35 04:45 WBC 15.0 H 13.7 H Hgb 10.9 L Hct 32 L Plt Count 164 Creatinine 1.29 H 01/23/17 04:45 WBC Hgb Hct Plt Count Creatinine 1.01 H Alert, no respiratory distress Walking quickly to bathroom, not paying attention to IV pole and tubing. Neck: no JVF Chest: clear, no rales or wheezes Heart; RRR, no murmur Abdo: soft, mild tenderness RLQ, ANDREW drain in place No peripheral edema, no calf tenderness A/P: Dyspnea: differential includes anxiety, volume overload, PE. Will cut IVF to 30 ml/hr, have chest X-ray. In AM checking BNP, CBC, CMP. May need CTA chest. Anxiety and confusion: she may be withdrawing from alcohol, though she denies alcohol use on admission. She seems a bit young for hospital-acquired delirium. Will observe, use additional ativan if needed. Hospitalists will follow later in day.
[2017-01-24] MEDS: NS 0.9% 1000 ML* 1,000 ML IV SCH (05:20)
[2017-01-24] MEDS: Acetaminophen TAB* 325 MG PO PRN ×2 (06:03→15:26)
[2017-01-24] MEDS: Heparin VIAL(*) 5000 UNITS/ML VIAL (FIVE THOUSAND) SUBCUT SCH ×3 (06:04→21:26)
[2017-01-24 06:32] LABS: Albumin 3.1 g/dL (3.2-5.2); BUN/Creatinine Ratio 16.5 (8-20); Calcium 8.4 mg/dL (8.6-10.3); EGFR African American 61.9 (>60); EGFR Non-African American 48.1 (>60); Globulin 2.7 g/dL (2-4); Potassium 3.9 mmol/L (3.5-5.0); Total Bilirubin 0.4 mg/dL (0.2-1.0); Total Protein 5.8 g/dL (6.4-8.9)
[2017-01-24] MEDS: Piperacillin/Tazobac ADVAN(*) 3.375 GM in NS 0.9% 100 ML* 100 ML IVPB SCH ×3 (07:37→23:10)
[2017-01-24] MEDS: Famotidine IV* 10 MG/ML 2 ML (20 mg) IV SLOW PU SCH ×2 (07:38→19:47)
--- NOTE | 2017-01-24 09:06 | RAD ---
INDICATION: Dyspnea COMPARISON: Chest x-ray dated January 22, 2017 TECHNIQUE: PA and lateral views of the chest were obtained. FINDINGS: The heart and mediastinum are normal in size and contour. There has been interval appearance of density overlying the mid-level and bilateral lower lungs. Pleural-based horizontal linear density at the lateral mid-level right lung could be consistent with a "Jung B Line". There is bibasilar costophrenic angle blunting, worse at the left than the right. Visualized bones are normal for the patient's age. There is no radiographic evidence of free air beneath the diaphragm again seen as calcified atherosclerosis overlying the arch of the aorta. IMPRESSION: THE CONSTELLATION OF CHEST X-RAY FINDINGS ARE CONSISTENT WITH INTERVAL DEVELOPMENT OF PULMONARY EDEMA AND LEFT GREATER THAN RIGHT SMALL PLEURAL EFFUSIONS RELATIVE TO THE JANUARY 22, 2017 CHEST X-RAY.
--- NOTE | 2017-01-24 10:10 | PN ---
Subjective Date of Service: 01/24/17 Interval History: Ms. Treviño states that she is feeling well this morning. She agrees that she has had some confusion overnight but is feeling better this morning. She denies chest pain, SOB, or nausea. She has some mild lower right quadrant abdominal pain. Objective Active Medications: Acetaminophen (Tylenol Tab*) 650 mg PO Q6H PRN Famotidine (Pepcid Iv*) 20 mg IV SLOW PU BID [facility] Heparin Sodium (Porcine) (Heparin Vial(*)) 5,000 units SUBCUT Q8HR [facility] Piperacillin Sod/Tazobactam (Sod 3.375 gm/ Sodium Chloride) 100 mls @ 25 mls/ hr IVPB Q8H [facility]CED Sodium Chloride (Ns 0.9% 1000 Ml*) 1,000 mls @ 30 mls/hr IV Q24H [facility] Ketorolac Tromethamine (Toradol Inj*) 15 mg IV PUSH Q6H PRN Lorazepam (Ativan Tab(*)) 1 mg PO DAILY PRN Morphine Sulfate (Morphine Inj (Syringe)*) 2 mg IV Q1H PRN Ondansetron HCl (Zofran Inj*) 4 mg IV Q6H PRN Oxycodone/Acetaminophen (Percocet 5/325 Tab*) 1 tab PO Q4H PRN Pharmacy Consult (Zosyn Per Pharmacy*) 1 note FOLLOW UP . PRN Vital Signs: Temp Pulse Resp BP Pulse Ox 97.8 F 84 16 139/71 93 01/24/17 03:29 01/24/17 03:29 01/24/17 03:29 01/24/17 03:29 01/24/17 03:29 Oxygen Devices in Use Now: Nasal Cannula Appearance: Female sitting up in chair in NAD Eyes: No Scleral Icterus Ears/Nose/Mouth/Throat: Mucous Membranes Moist Neck: Trachea Midline Respiratory: Symmetrical Chest Expansion and Respiratory Effort, Clear to Auscultation Cardiovascular: NL Sounds; No Murmurs; No JVD, No Edema Abdominal: - - Soft, minimal tenderness, BS +, ANDREW with serosanginous drainage Lymphatic: No Cervical Adenopathy Extremities: No Edema Skin: - - steri-strips to lap incisions CDI Neurological: Alert and Oriented x 3, NL Muscle Strength and Tone Nutrition: Taking PO's Result Diagrams: 01/23/17 04:45 01/24/17 06:00 Additional Lab and Data: Vital Signs: Temp Pulse Resp BP Pulse Ox 97.8 F 84 16 139/71 93 01/24/17 03:29 01/24/17 03:29 01/24/17 03:29 01/24/17 03:29 01/24/17 03:29 Assess/Plan/Problems-Billing Assessment: Ms. Treviño is a 62 yo female with a PMH of anxiety who was admitted on with acute appendicitis. Hospital Medicine consulted on 01/24/17 after an episode of confusion with tachypnea and mild hypoxia with concern for anxiety attack. - Patient Problems (1) Appendicitis Comment: - She remains afebrile, no tachycardia, minimal pain. - S/P lap appy with Dr. Simental on 01/22/17. Operative findings of purulent drainage in abdomen with evidence of acute on chronic inflammation. (2) Anxiety Comment: - Continue home ativan. (3) Delirium Comment: - Patient with confusion overnight consistent with delirium. - Patient has refused narcotics. No other delirogenic agents ordered. - Supportive care. (4) DVT prophylaxis Comment: - Heparin SQ. (5) Full code status Status and Disposition: Inpatient. Disposition per surgery.
--- NOTE | 2017-01-24 11:00 | PN ---
Progress Note - Progress Note Date of Service: 01/24/17 SOAP: Subjective: Episode of confusion after Ativan last PM then nurse concerned about respiratory status. Hospitalist called to evaluate and determined to be combination of panic attack and delirium. Better now. She has adequate pain control without narcotics and does not want them for fear of nausea. She would like to eat. She is passing flatus. Objective: Vital Signs Temp 97.6 F 01/24/17 07:25 Pulse 54 01/24/17 07:25 Resp 18 01/24/17 07:45 BP 133/55 01/24/17 07:25 Pulse Ox 97 01/24/17 07:25 Gen: sitting up in bed; NAD Abd: incis c/d/i; no erythema; ANDREW has SS o/p; soft and mildly tender throughout. Intake & Output 01/23/17 01/24/17 01/24/17 18:59 06:59 18:59 Intake Total 2383 1763 Output Total 1120 530 Balance 1263 1233 Intake: IV Fluids 2056 663 IVPB 102 Oral 225 1100 Output: ANDREW #1 20 30 Urine 1100 500 Other: Estimated Void Medium # Bowel Movements 0 Estimated Stool Amount Small # Voids 1 Assessment: POD#2 s/p lap appy for suppurative appendicitis/peritonitis. Anxiety/delirium better. Plan: Appreciate hospitalist f/u. Will adv diet as tolerated. HL IV. Cont IV abx another 24 hr then home tomorrow. D/w pt who understands and agrees.
[2017-01-24] MEDS: Ketorolac INJ* 15 MG/ML 1 ML VIAL IV PUSH PRN (15:26)
--- NOTE | 2017-01-24 19:31 | CONS ---
CC: Dr. Gil * MEDICAL CONSULTATION REPORT: DATE OF CONSULT: 01/24/17 REQUESTING PHYSICIAN: Dr. Gil. REASON FOR CONSULT: Shortness of breath. HISTORY OF PRESENT ILLNESS: Ms. Treviño is a 62-year-old woman with history of anxiety and depression, who was admitted on 01/22/17 with abdominal pain and taken to the operating room for appendectomy on 01/23/17. She was found to have acute retrocecal appendicitis with purulent peritonitis as a postop diagnosis. She has been treated as a ruptured appendicitis with IV antibiotics and a ANDREW drain postop. Overnight, the patient had 2 episodes of panic attack with anxiety and trouble breathing. The patient was given a dose of lorazepam 1 mg around 2300, which she states did not relieve the anxiety. At home, she has had anxiety and has been often on antidepressants, SSRIs, as well as had benefit from using lorazepam as needed. She feels it is odd that the lorazepam did not help at this time. I was called to see the patient because she has had increasing tachypnea and shortness of breath in the last hour. The patient's oxygen saturation dropped into the low 90s and high 80s and she was placed on 2 L of oxygen. The patient denies any history of asthma or COPD. She is a nonsmoker. She denies any chronic lung disease. The nurses also report that the patient is slightly confused. She was alert and oriented to place and time , but she is acting agitated. She is asking about things that do not quite make sense like her who she should know is at home and not here. PAST MEDICAL HISTORY: Anxiety, depression as above. PAST SURGICAL HISTORY: Lumbar laminectomy. MEDICATIONS: On admission: 1. Ibuprofen as needed. 2. Ativan 1 mg as needed. The current medication list includes: 1. Acetaminophen p.r.n.. 2. Famotidine 20 mg IV b.i.d. 3. Heparin 5000 units subcu q.8 hours. 4. Ketorolac 15 mg q.6 hours p.r.n. pain. 5. Lorazepam 1 mg p.o. q. day p.r.n. anxiety. 6. Morphine 2 mg IV q.1 hour p.r.n. pain. 7. Ondansetron 4 mg IV q.6 hours p.r.n. nausea. 8. Percocet 1 tab q.4 hours p.r.n. pain. 9. Zosyn IV q.8 hours. It should be noted that the patient has not actually received any of the morphine or Percocet in the last 12 hours. ALLERGIES: CLARITHROMYCIN. 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 She is . She has 1 daughter. She does not smoke, she does not drink alcohol. No recreational drugs. REVIEW OF SYSTEMS: The patient denies any fever. The patient denies any chest pain or palpitations. The patient does admit to shortness of breath at rest, not worse with exertion such as walking to the bathroom. She denies any vomiting. She says she is tolerating clear liquid diet. Psychiatrically, the patient says she is sitting and worrying about her daughter who is around the age 20 and what would happen to her daughter if she were to . She is worried about her who is quite older than her, who also would be left in bad situation if she were to . The remainder of her 14-point review of systems is negative other than mentioned in the HPI. PHYSICAL EXAM: Her temperature is 36.6, pulse 84, respirations 16 to 26, blood pressure is 139/71,oxygen saturation is 93% on 2 L. We took her oxygen off and she walked to the bathroom and her oxygen saturation went down to 89% and returned to 94% on 2 L. General: She is an older woman, tachypneic, in no respiratory distress. Head is normocephalic, atraumatic. Sclerae anicteric. Pupils are equal, round, and reactive to light and accommodation. Oropharynx is moist, no lesions. Neck: No JVD or carotid bruits. Lungs are clear to auscultation and percussion bilaterally. Heart has regular rate and rhythm without murmurs or gallops. Abdomen: Soft. There is some mild tenderness in the right lower quadrant and a ANDREW drain is present. No masses. Positive bowel sounds. Extremities: No peripheral edema. No calf tenderness. Neurologic: She is alert and oriented x3. She is conversant. Cranial nerves are grossly intact. Motor strength is 5/5. She is walking to the bathroom without assistance, but she does not pay attention to the IV pole and got the tubing tied around her legs. DIAGNOSTIC STUDIES/LAB DATA: Sodium 135, potassium 4.1, chloride 106, bicarb 20 , BUN 16, creatinine 1.01, glucose is 137, creatinine on admission was 1.29. C - reactive protein on admission was 217. Liver enzymes were normal. Lipase was negative. INR on admission was 1.42, PTT 26.3. White count this morning was 13.7, hemoglobin 10.9, hematocrit 30%, platelets are 164. Urinalysis shows 2+ blood, trace leuk esterase, trace ketones. Imaging includes a CT abdomen and pelvis on 01/22/17 that showed acute appendicitis. The chest x-ray on 01/22/17 was negative for infiltrates or effusions. ASSESSMENT/RECOMMENDATIONS: A 62-year-old woman with recent episode of appendectomy complicated by peritonitis, now having episodes of mild confusion, anxiety, and dyspnea overnight on postop day #2. For the dyspnea, the differential would include aspiration pneumonia, volume overload from IV fluids with some mild heart failure, anxiety, and pulmonary emboli. The recommendation is to check a chest x-ray tonight and to cut down her IV fluids to almost nothing. The patient will have repeat electrolytes and a BMP in the morning in a few hours. If she has continued dyspnea and chest x- ray is negative, we can consider doing a CT angio of her chest. The patient also has some anxiety attacks and mild confusion. She appears to be a little young to have hospital-acquired delirium, especially in the absence of pain medications. The patient may be withdrawing from alcohol, although she did not mention alcohol use on admission. She may need additional Ativan and simply may have undertreated anxiety. At this point, she does not appear to be in any great danger and we will follow her clinical course during the day time as consultants. [id number]/[facility] #: [id number] DEREK
[2017-01-24] MEDS: Ondansetron INJ* 2 MG/ML VIAL IV PRN (20:37)
[2017-01-24] MEDS ORDERED: Albuterol 2.5 MG/3 ML NEB.SOL* (0.083%) ONE (21:20)
[2017-01-24] MEDS: Albuterol 2.5 MG/3 ML NEB.SOL* (0.083%) INH PRN (21:23)
[2017-01-25] MEDS: Albuterol 2.5 MG/3 ML NEB.SOL* (0.083%) INH PRN ×2 (01:40→05:40)
[2017-01-25] MEDS: Ondansetron INJ* 2 MG/ML VIAL IV PRN (02:53)
[2017-01-25] MEDS: NS 0.9% 1000 ML* 1,000 ML IV SCH (05:41)
[2017-01-25] MEDS: Heparin VIAL(*) 5000 UNITS/ML VIAL (FIVE THOUSAND) SUBCUT SCH ×3 (05:43→21:58)
[2017-01-25] MEDS ORDERED: Furosemide IV* 10 MG/ML VIAL (40 MG) ONE (06:14)
--- NOTE | 2017-01-25 06:28 | PN ---
Progress Note - Progress Note Date of Service: 01/25/17 Note: Nursing requested evaluation for SOB and increasing oxygen requirements. Upon evaluation, Mrs Treviño is a 62F s/p lap appy w/ post-op delirium. In fact, she denies being a patient in the hospital. She is sitting in a bedside chair, fidgeting and frequently removing her oxymask. She is in no distress, but appears anxious. She denies chest pain, palpitations, and light-headedness. vitals: BP 120 systolic,HR 90-100s, RR mid-20s lungs: fine cellophane crackles B bases up to mid-fair CV: RRR, normal S1S2 abdomen: SNTND extremities: trace BLE edema assessment: plan volume overload w/ 2nd SOB : 40mg IV furosemide x1 : continue to monitor respiratory status closely : if no improvement by later this AM, would consider repeat CXR post-op delirium : avoid sedating/altering drugs s/p lap appy : stable, management per surgery
[2017-01-25] MEDS ORDERED: Furosemide IV* 10 MG/ML VIAL (40 MG) IV ONE (08:15)
--- NOTE | 2017-01-25 08:40 | RAD ---
HISTORY: Hypoxia COMPARISONS: January 24, 2017 VIEWS: 1: frontal portable view of the chest at 8:25 AM FINDINGS: LINES AND TUBES: None. CARDIOMEDIASTINAL SILHOUETTE: The cardiomediastinal silhouette is normal for portable technique. PLEURA: The costophrenic angles are sharp. No pleural abnormalities are noted. LUNG PARENCHYMA: There is prominence of the central pulmonary vasculature with indistinct pulmonary vessels. There has been interval development of confidence alveolar opacification of the lung bases bilaterally. ABDOMEN: The upper abdomen is clear. There is no subphrenic gas. BONES AND SOFT TISSUES: No bone or soft tissue abnormalities are noted. IMPRESSION: 1. PULMONARY VASCULAR CONGESTION WITH MILD INTERSTITIAL EDEMA. 2. INTERVAL DEVELOPMENT OF BIBASILAR ATELECTASIS VERSUS CONSOLIDATION
[2017-01-25 10:05] LABS: Hematocrit 30 % (35-47); Hemoglobin 10.4 g/dl (12.0-16.0); Mean Corpuscular HGB Conc 34 g/dl (31-36); Mean Corpuscular Hemoglobin 29 pg (27-31); Mean Corpuscular Volume 86 fL (80-97); Mean Platelet Volume 8 um3 (7.4-10.4); Red Blood Count 3.54 10^6/ul (4.0-5.4); Red Cell Distribution Width 13 % (10.5-15); White Blood Count 8.6 10^3/ul (3.5-10.8)
[2017-01-25 10:18] LABS: BUN/Creatinine Ratio 10.5 (8-20); Calcium 8.8 mg/dL (8.6-10.3); EGFR African American 68.8 (>60); EGFR Non-African American 53.5 (>60); Potassium 3.2 mmol/L (3.5-5.0)
[2017-01-25] MEDS ORDERED: Iodixanol* (CONTRAST) 320 MG/ML 100 ML SDV IV ONE (11:44)
[2017-01-25] MEDS: Famotidine IV* 10 MG/ML 2 ML (20 mg) IV SLOW PU SCH ×2 (11:49→19:26)
[2017-01-25] MEDS: Piperacillin/Tazobac ADVAN(*) 3.375 GM in NS 0.9% 100 ML* 100 ML IVPB SCH ×3 (11:49→17:47)
[2017-01-25] MEDS: Acetaminophen TAB* 325 MG PO PRN (14:39)
--- NOTE | 2017-01-25 14:56 | PN ---
Subjective Date of Service: 01/25/17 Interval History: This is an otherwise healthy 62 yo female with the exception of anxiety who presented with acute appendicitis now s/p appendectomy. Hospitalist group consulted for post operative confusion and has since developed hypoxia. Today, patient continues to be intermittently confused and hypoxic with c/o SOB. No abdominal pain, n/v. Administration of her usual home ativan seems to be making her confusion worse. CXR suggestive of pulm edema, no h/o cardiac disease. Objective Active Medications: Acetaminophen (Tylenol Tab*) 650 mg PO Q6H PRN PRN Reason: FEVER Last Admin: 01/25/17 14:39 Dose: 650 mg Albuterol (Ventolin 2.5 Mg/3 Ml Neb.Maile*) 2.5 mg INH Q2H PRN PRN Reason: SOB/WHEEZING Last Admin: 01/25/17 05:40 Dose: 2.5 mg Famotidine (Pepcid Iv*) 20 mg IV SLOW PU BID [facility] Last Admin: 01/25/17 11:49 Dose: Not Given Furosemide (Lasix Tab*) 40 mg PO ONCE ONE Stop: 01/25/17 15:01 Heparin Sodium (Porcine) (Heparin Vial(*)) 5,000 units SUBCUT Q8HR [facility] Last Admin: 01/25/17 14:42 Dose: 5,000 units Piperacillin Sod/Tazobactam (Sod 3.375 gm/ Sodium Chloride) 100 mls @ 25 mls/ hr IVPB Q8H [facility] Last Admin: 01/25/17 11:49 Dose: Not Given Ketorolac Tromethamine (Toradol Inj*) 15 mg IV PUSH Q6H PRN PRN Reason: PAIN Last Admin: 01/24/17 15:26 Dose: 15 mg Lorazepam (Ativan Tab(*)) 1 mg PO DAILY PRN PRN Reason: ANXIETY Last Admin: 01/24/17 15:57 Dose: 1 mg Morphine Sulfate (Morphine Inj (Syringe)*) 2 mg IV Q1H PRN PRN Reason: PAIN Ondansetron HCl (Zofran Inj*) 4 mg IV Q6H PRN PRN Reason: NAUSEA Last Admin: 01/25/17 02:53 Dose: 4 mg Oxycodone/Acetaminophen (Percocet 5/325 Tab*) 1 tab PO Q4H PRN PRN Reason: PAIN Pharmacy Consult (Zosyn Per Pharmacy*) 1 note FOLLOW UP . PRN PRN Reason: PER PROTOCOL Vital Signs: Temp Pulse Resp BP Pulse Ox 99.1 F 86 20 127/57 100 01/25/17 08:06 01/25/17 08:32 01/25/17 08:32 01/25/17 08:06 01/25/17 08:32 Oxygen Devices in Use Now: Nasal Cannula Appearance: Middle aged female who appears somewhat lethargic and confused and tearful. Accompanied by her and sister Respiratory: Symmetrical Chest Expansion and Respiratory Effort, - - few crackles at lung base Cardiovascular: NL Sounds; No Murmurs; No JVD, RRR Abdominal: NL Sounds; No Tenderness; No Distention Extremities: No Edema Skin: No Rash or Ulcers Neurological: Alert and Oriented x 3 Result Diagrams: 01/25/17 09:53 01/25/17 09:53 Additional Lab and Data: Vital Signs: Temp Pulse Resp BP Pulse Ox 97.8 F 84 16 139/71 93 01/24/17 03:29 01/24/17 03:29 01/24/17 03:29 01/24/17 03:29 01/24/17 03:29 Diagnostic Imaging: CXR - pulm edema with bilateral effusions Assess/Plan/Problems-Billing Assessment: Ms. Treviño is a 62 yo female with a PMH of anxiety who was admitted on with acute appendicitis. Hospital Medicine consulted on 01/24/17 after an episode of confusion with tachypnea and mild hypoxia with concern for anxiety attack. - Patient Problems (1) Appendicitis Comment: S/P lap appy with Dr. Simental on 01/22/17 Post op management her surgery (2) Delirium Comment: Intermittent confusion Patient has had little to no narcotics post operatively Hypoxia may be contributing Will try to limit her ativan (3) Hypoxia Comment: CXR suggestive of pulm edema and bilateral pleural effusions Will diuress with Lasix Check CTA to eval for PE although suspicion is low (4) Anxiety Comment: She is intermittently confused and anxious Ativan seems to be exacerbating her confusion Will trial to limit the use of ativan and asked her family to continue supportive measures (5) DVT prophylaxis Comment: - Heparin SQ. (6) Full code status Status and Disposition: Inpatient. Disposition per surgery.
[2017-01-25] MEDS ORDERED: Furosemide TAB* 40 MG PO ONE (15:00)
--- NOTE | 2017-01-25 16:56 | RAD ---
INDICATION: Shortness of breath. Acute appendicitis. Assess for pulmonary embolism. COMPARISON: Chest radiograph of the same date and January 22, [address] TECHNIQUE: Multidetector CT images were obtained from the lung apices to the upper abdomen with 69 mL Visipaque 320 IV contrast. Pulmonary angiogram protocol. Multiplanar reformation including with maximum intensity projection. REPORT: Moderately large bilateral dependent pleural effusions new compared with the prior CT exam with proportional compressive atelectasis. In addition there is patchy alveolar consolidation within both lungs which may represent bronchopneumonia. Negative for pneumothorax. Negative for thoracic lymphadenopathy, cardiomegaly, pericardial effusion. Normal diameter thoracic aorta with mild atherosclerotic plaque. No filling defects are identified from the main to the subsegmental pulmonary arteries to indicate presence of a pulmonary embolism. Images through the upper abdomen are remarkable for a partially visualized 100 mL cyst at the RIGHT posterior hepatic segment as documented on the prior CT. Distended RIGHT dominant and smaller LEFT internal jugular veins as well as the visualized superior segment of the inferior vena cava indicating high volume state. Negative for suspicious osseous lesions. IMPRESSION: 1. Negative for pulmonary embolism. 2. Moderately large bilateral dependent pleural effusions new compared with the prior CT exam with proportional compressive atelectasis. Effusions may be secondary to pulmonary vascular congestion and interstitial edema. 3. In addition there is patchy alveolar consolidation within both lungs which may represent bronchopneumonia. 4. Suggestion of high intravascular volume state. Results discussed with nurse Sanchez 01/25/2017 4:52 PM EST
--- NOTE | 2017-01-25 19:47 | PN ---
Progress Note - Progress Note Date of Service: 01/25/17 SOAP: Subjective: Patient was initially seen at about 100o this morning. Events of the weekend noted-she had some respiratory issues as well as mental status changes that required attention. She is feeling better and is breathing better after receiving lasix today She is tolerating full liquids and having loose green bowel movements and has only minimal abdominal pain Objective: She has been afebrile for 24 hours Temp Pulse Resp BP Pulse Ox 97.3 F 74 18 122/61 96 01/25/17 16:48 01/25/17 16:48 01/25/17 16:48 01/25/17 16:48 01/25/17 16:48 Intake & Output 01/23/17 01/24/17 01/25/17 01/26/17 06:59 06:59 06:59 06:59 Intake Total 5295 4146 2178 300 Output Total 335 1650 1770 3690 Balance 4960 2496 408 -3390 Weight 150 lb Intake: IV Fluids 5045 2719 1121 LR 1850 NS 901 IVPB 102 257 Zosyn 257 Oral 250 1325 800 300 Output: ANDREW #1 85 50 20 40 Urine 250 1600 1750 3650 Other: Estimated Void Medium Medium Large Date of Last Bowel 01/25/17 Movement # Bowel Movements 0 1 1 Estimated Stool Amount Small Medium Small # Voids 1 1 1 PEX: Comfortable although she is slightly tachypneic She is awake, alert and oriented X 3 Lungs with decreased breath sounds at the bases-no wheezes or rales presently Abd is soft and non-distended; Incisions are clean and dry. She has normoactive bowel sounds throughout. ANDREW is in place with small amount of serous fluid in the bulb. Ext without edema Laboratory Results - last 24 hr 01/25/17 01/25/17 09:53 09:53 WBC 8.6 RBC 3.54 L Hgb 10.4 L Hct 30 L MCV 86 MCH 29 MCHC 34 RDW 13 Plt Count 212 MPV 8 Neut % (Auto) 85.8 H Lymph % (Auto) 7.[address] [place] % (Auto) 5.7 Eos % (Auto) 0 Baso % (Auto) 0.7 Absolute Neuts (auto) 7.4 Absolute Lymphs (auto) 0.7 L Absolute Monos (auto) 0.5 Absolute Eos (auto) 0 Absolute Basos (auto) 0.1 Absolute Nucleated RBC 0 Nucleated RBC % 0 Sodium 140 Potassium 3.2 L Chloride 106 Carbon Dioxide 24 Anion Gap 10 BUN 11 Creatinine 1.05 H Est GFR ( Amer) 68.8 Est GFR (Non-Af Amer) 53.5 BUN/Creatinine Ratio 10.5 Glucose 162 H Calcium 8.8 CTA today shows no pulmonary embolism, pulmonary vascular congestion and bilateral pleural effusions. Assessment: POD# 3 s/p lap appy for acute appendicitis Hypoxia-appears secondary to fluid overload Mental status changes-improved Plan: She has received lasix today with good urinary output and feels better from a respiratory standpoint. Advance diet-she it tolerating liquids and having bowel movements. She remains afebrile and her WBC is normal. I do not feel that there is an acute surgical complication but if her respiratory status does not improve will consider CT of the abdomen and pelvis. IV Zosyn Recheck labs in AM Increase activity and pulmonary toilet PPI and subq heparin All of the above discussed with patient and her daughter Appreciate hospitalist consult.
[2017-01-26] MEDS: Piperacillin/Tazobac ADVAN(*) 3.375 GM in NS 0.9% 100 ML* 100 ML IVPB SCH ×3 (01:16→17:52)
[2017-01-26 04:58] LABS: Hematocrit 28 % (35-47); Hemoglobin 9.8 g/dl (12.0-16.0); Mean Corpuscular HGB Conc 35 g/dl (31-36); Mean Corpuscular Hemoglobin 30 pg (27-31); Mean Corpuscular Volume 86 fL (80-97); Mean Platelet Volume 7 um3 (7.4-10.4); Red Blood Count 3.31 10^6/ul (4.0-5.4); Red Cell Distribution Width 13 % (10.5-15); White Blood Count 5.5 10^3/ul (3.5-10.8)
[2017-01-26 05:11] LABS: BUN/Creatinine Ratio 8.4 (8-20); Calcium 8.3 mg/dL (8.6-10.3); EGFR African American 67.3 (>60); EGFR Non-African American 52.3 (>60); Globulin 2.5 g/dL (2-4); Magnesium 1.9 mg/dL (1.9-2.7); Phosphorus 2.4 mg/dL (2.5-5.0); Total Bilirubin 0.4 mg/dL (0.2-1.0); Total Protein 5.5 g/dL (6.4-8.9)
[2017-01-26] MEDS: Heparin VIAL(*) 5000 UNITS/ML VIAL (FIVE THOUSAND) SUBCUT SCH ×3 (05:21→20:57)
[2017-01-26] MEDS: Famotidine IV* 10 MG/ML 2 ML (20 mg) IV SLOW PU SCH ×2 (08:18→20:58)
[2017-01-26] MEDS: Furosemide IV* 10 MG/ML VIAL (40 MG) IV SCH (08:24)
[2017-01-26 08:50] LABS: BUN/Creatinine Ratio 9.5 (8-20); Calcium 8.2 mg/dL (8.6-10.3); EGFR African American 77.2 (>60); Potassium 3.2 mmol/L (3.5-5.0)
--- NOTE | 2017-01-26 08:52 | PN ---
Progress Note - Progress Note Date of Service: 01/26/17 SOAP: Subjective: She finally slept well and feels "more lucid" this morning Her breathing is better and she does not feel short of breath Passing flatus and only minimal incisional tenderness. No nausea at present Objective: Afebrile for 24 hours Temp Pulse Resp BP Pulse Ox 98.1 F 71 18 111/47 95 01/26/17 07:23 01/26/17 07:23 01/26/17 07:23 01/26/17 07:23 01/26/17 07:23 Intake & Output 01/24/17 01/25/17 01/26/17 01/27/17 06:59 06:59 06:59 06:59 Intake Total 4146 2178 1206 Output Total 1650 1770 4090 Balance 2496 408 -2884 Intake: IV Fluids 2719 1121 106 NS 901 Zosyn 106 IVPB 102 257 Zosyn 257 Oral 2311 842 0821 Output: ANDREW #1 50 20 40 Urine 1600 1750 4050 Other: Estimated Void Medium Medium Large Date of Last Bowel 01/25/17 Movement # Bowel Movements 0 1 1 Estimated Stool Amount Small Medium Small # Voids 1 1 1 PEX: Comfortable--awake and alert Lungs are coarse with rhonchi and decreased breath sounds at the bases Abd is soft and non-distended. Bowel sounds are preset, incisions are clean and dry. ANDREW in place with thin serous fluid in bulb Ext without edema Laboratory Results - last 24 hr 01/25/17 01/25/17 01/26/17 09:53 09:53 04:43 WBC 8.6 5.5 RBC 3.54 L 3.31 L Hgb 10.4 L 9.8 L Hct 30 L 28 L MCV 86 86 MCH 29 30 MCHC 34 35 RDW 13 13 Plt Count 212 187 MPV 8 7 L Neut % (Auto) 85.8 H 61.9 Lymph % (Auto) 7.8 L 27.6 [place] % (Auto) 5.7 8.4 Eos % (Auto) 0 1.9 Baso % (Auto) 0.7 0.2 Absolute Neuts (auto) 7.4 3.4 Absolute Lymphs (auto) 0.7 L 1.5 Absolute Monos (auto) 0.5 0.5 Absolute Eos (auto) 0 0.1 Absolute Basos (auto) 0.1 0 Absolute Nucleated RBC 0 0 Nucleated RBC % 0 0.1 Sodium 140 Potassium 3.2 L Chloride 106 Carbon Dioxide 24 Anion Gap 10 BUN 11 Creatinine 1.05 H Est GFR ( Amer) 68.8 Est GFR (Non-Af Amer) 53.5 BUN/Creatinine Ratio 10.5 Glucose 162 H Calcium 8.8 Phosphorus Magnesium Total Bilirubin AST ALT Alkaline Phosphatase Total Protein Albumin Globulin Albumin/Globulin Ratio 01/26/17 04:43 WBC RBC Hgb Hct MCV MCH MCHC RDW Plt Count MPV Neut % (Auto) Lymph % (Auto) [place] % (Auto) Eos % (Auto) Baso % (Auto) Absolute Neuts (auto) Absolute Lymphs (auto) Absolute Monos (auto) Absolute Eos (auto) Absolute Basos (auto) Absolute Nucleated RBC Nucleated RBC % Sodium 138 Potassium 3.0 L Chloride 104 Carbon Dioxide 28 Anion Gap 6 BUN 9 Creatinine 1.07 H Est GFR ( Amer) 67.3 Est GFR (Non-Af Amer) 52.3 BUN/Creatinine Ratio 8.4 Glucose 95 Calcium 8.3 L Phosphorus 2.4 L Magnesium 1.9 Total Bilirubin 0.40 AST 22 ALT 15 Alkaline Phosphatase 52 Total Protein 5.5 L Albumin 3.0 L Globulin 2.5 Albumin/Globulin Ratio 1.2 Assessment: POD # 4 s/p lap appy for acute appendicitis Respiratory issues felt secondary to fluid overload-she is now mobilizing fluid and has negative fluid balance over the last 24 hours Hypokalemia Plan: Advance diet to regular Continue IV Zosyn D/C ANDREW drain Replete K Medical management per hospitalist-she is OK for d/c from surgical standpoint but she is still requiring O2 and suspect will require continued inpatient stay until further respiratory improvement.
[2017-01-26] MEDS: Acetaminophen TAB* 325 MG PO PRN ×2 (09:40→20:58)
[2017-01-26] MEDS ORDERED: Furosemide TAB* 40 MG PO ONE (10:50)
--- NOTE | 2017-01-26 11:10 | PN ---
Subjective Date of Service: 01/26/17 Interval History: Patient reports feeling much better this morning. She states she feels "better oriented". She reports little to no pain at her surgery site. No n/v/d. No c/ o SOB or CP. Objective Active Medications: Acetaminophen (Tylenol Tab*) 650 mg PO Q6H PRN PRN Reason: FEVER Last Admin: 01/26/17 09:40 Dose: 650 mg Albuterol (Ventolin 2.5 Mg/3 Ml Neb.Maile*) 2.5 mg INH Q2H PRN PRN Reason: SOB/WHEEZING Last Admin: 01/25/17 05:40 Dose: 2.5 mg Famotidine (Pepcid Iv*) 20 mg IV SLOW PU BID [facility] Last Admin: 01/26/17 08:18 Dose: 20 mg Furosemide (Lasix Iv*) 40 mg IV DAILY [facility] Last Admin: 01/26/17 08:24 Dose: 40 mg Heparin Sodium (Porcine) (Heparin Vial(*)) 5,000 units SUBCUT Q8HR [facility] Last Admin: 01/26/17 05:21 Dose: 5,000 units Piperacillin Sod/Tazobactam (Sod 3.375 gm/ Sodium Chloride) 100 mls @ 25 mls/ hr IVPB 0100,0900,1700 [facility] Last Admin: 01/26/17 08:25 Dose: 25 mls/hr Potassium Chloride (Potassium Chloride 10 Meq/50 Ml Ivpremix*) 10 meq in 50 mls @ 50 mls/hr IV Q1H [facility] Stop: 01/26/17 11:59 Ketorolac Tromethamine (Toradol Inj*) 15 mg IV PUSH Q6H PRN PRN Reason: PAIN Last Admin: 01/24/17 15:26 Dose: 15 mg Lorazepam (Ativan Tab(*)) 1 mg PO DAILY PRN PRN Reason: ANXIETY Last Admin: 01/24/17 15:57 Dose: 1 mg Morphine Sulfate (Morphine Inj (Syringe)*) 2 mg IV Q1H PRN PRN Reason: PAIN Ondansetron HCl (Zofran Inj*) 4 mg IV Q6H PRN PRN Reason: NAUSEA Last Admin: 01/25/17 02:53 Dose: 4 mg Oxycodone/Acetaminophen (Percocet 5/325 Tab*) 1 tab PO Q4H PRN PRN Reason: PAIN Pharmacy Consult (Zosyn Per Pharmacy*) 1 note FOLLOW UP . PRN PRN Reason: PER PROTOCOL Vital Signs: Temp Pulse Resp BP Pulse Ox 98.1 F 71 16 111/47 95 01/26/17 07:23 01/26/17 07:23 01/26/17 08:41 01/26/17 07:23 01/26/17 08:41 Oxygen Devices in Use Now: Nasal Cannula Appearance: Well appearing, alert, conversant, sitting up in a chair at bedside Neck: NL Appearance and Movements; NL JVP Respiratory: Symmetrical Chest Expansion and Respiratory Effort, - - crackles at lung bases bilaterally Cardiovascular: NL Sounds; No Murmurs; No JVD, RRR Abdominal: NL Sounds; No Tenderness; No Distention Extremities: No Edema Skin: No Rash or Ulcers Neurological: Alert and Oriented x 3 Result Diagrams: 01/26/17 04:43 01/26/17 08:26 Additional Lab and Data: Vital Signs: Temp Pulse Resp BP Pulse Ox 97.8 F 84 16 139/71 93 01/24/17 03:29 01/24/17 03:29 01/24/17 03:29 01/24/17 03:29 01/24/17 03:29 Diagnostic Imaging: CXR - pulm edema with bilateral effusions CT chest - no PE, moderate sized pleural effusions with possible infiltrate v atelectasis Assess/Plan/Problems-Billing Assessment: Ms. Treviño is a 62 yo female with a PMH of anxiety who was admitted on with acute appendicitis. Hospital Medicine consulted on 01/24/17 after an episode of confusion with tachypnea and mild hypoxia with concern for anxiety attack. - Patient Problems (1) Appendicitis Comment: S/P lap appy with Dr. Simental on 01/22/17 Post op management her surgery (2) Pleural effusion Comment: CT confirms presence of moderate sized pleural effusions and pulm edema No clinical evidence of PNA Diuressing with IV Lasix Will assess RA resting and ambulatory O2 today (3) Delirium Comment: Resolved Intermittent confusion Patient has had little to no narcotics post operatively Hypoxia may be contributing Continue to limit her ativan (4) Hypokalemia Comment: Repleting IV Likely due to IV loop diuretics (5) Anxiety Comment: Improved She has been intermittently confused and anxious Ativan seems to be exacerbating her confusion, will continue to limit (6) DVT prophylaxis Comment: Heparin SQ. (7) Full code status Status and Disposition: Inpatient. Disposition per surgery. If able to maintain RA saturations >90% at rest and with ambulation, ok to dc from medical perspective, otherwise may be ready tomorrow.
[2017-01-26] MEDS: KCL 10 MEQ/50 ML IVPREMIX* 10 MEQ/50 ML BAG IV SCH ×3 (11:14→14:56)
[2017-01-26] MEDS ORDERED: Ibuprofen TAB* 400 MG PO PRN (13:52)
[2017-01-26] MEDS ORDERED: KCL 10 MEQ/50 ML IVPREMIX* 10 MEQ/50 ML BAG ONE (14:54)
[2017-01-27] MEDS: Piperacillin/Tazobac ADVAN(*) 3.375 GM in NS 0.9% 100 ML* 100 ML IVPB SCH ×2 (01:02→10:23)
[2017-01-27 05:41] LABS: BUN/Creatinine Ratio 10.3 (8-20); Calcium 8.1 mg/dL (8.6-10.3); EGFR African American 75.3 (>60); EGFR Non-African American 58.6 (>60); Globulin 2.4 g/dL (2-4); Magnesium 1.8 mg/dL (1.9-2.7); Potassium 3.1 mmol/L (3.5-5.0); Total Bilirubin 0.4 mg/dL (0.2-1.0); Total Protein 5.4 g/dL (6.4-8.9)
[2017-01-27] MEDS: Acetaminophen TAB* 325 MG PO PRN (05:44)
[2017-01-27] MEDS: Heparin VIAL(*) 5000 UNITS/ML VIAL (FIVE THOUSAND) SUBCUT SCH (05:45)
[2017-01-27] MEDS ORDERED: Magnesium Sulfate 2 GM IV* 2 GM/50 ML BAG IVPB ONE (07:48)
[2017-01-27] MEDS ORDERED: Potassium Chlor TAB* 20 MEQ TAB.ER PO ONE ×2 (09:00→10:47)
--- NOTE | 2017-01-27 09:27 | PN ---
Progress Note - Progress Note Date of Service: 01/27/17 SOAP: Subjective: Doing well-slept well and ready to go home Tolerating po Minimal pain-not requiring narcotics Breathing continue to improve Objective: Temp Pulse Resp BP Pulse Ox 98.8 F 63 17 126/56 94 01/27/17 03:06 01/27/17 03:06 01/27/17 03:06 01/27/17 03:06 01/27/17 04:32 Intake & Output 01/25/17 01/26/17 01/27/17 01/28/17 06:59 06:59 06:59 06:59 Intake Total 2178 1206 1731 165 Output Total 1770 4090 2700 Balance 408 -3896 -180 165 Intake: IV Fluids 1121 106 691 50 NS 901 406 50 Zosyn 106 105 potassium 180 IVPB 257 115 Zosyn 257 115 Oral 800 1100 1040 Output: ANDREW #1 20 40 Urine 1750 4050 2700 [place] 0 Other: Estimated Void Medium Large Date of Last Bowel 01/25/17 Movement # Bowel Movements 1 1 0 Estimated Stool Amount Medium Small # Voids 1 1 PEX: Comfortable Lungs are clear with slight decrease in breath sounds at bases, no rales Abd is soft and non-distended. Bowel sounds are present and normal. Incisions are clean and dry Laboratory Results - last 24 hr 01/27/17 04:51 Sodium 138 Potassium 3.1 L Chloride 105 Carbon Dioxide 27 Anion Gap 6 BUN 10 Creatinine 0.97 H Est GFR ( Amer) 75.3 Est GFR (Non-Af Amer) 58.6 BUN/Creatinine Ratio 10.3 Glucose 93 Calcium 8.1 L Magnesium 1.8 L Total Bilirubin 0.40 AST 18 ALT 15 Alkaline Phosphatase 46 Total Protein 5.4 L Albumin 3.0 L Globulin 2.4 Albumin/Globulin Ratio 1.3 Assessment: POD# 5 s/p lap appy-acute appendicitis--doing well on soft diet Respiratory difficulty-fluid overload--much improved and responding to diuretic Hypokalemia-most likely to lasix use Plan: Replete K this morning Plan d/c home after KCL runs See discharge plan Outpatient follow up.
[2017-01-27] MEDS: Famotidine IV* 10 MG/ML 2 ML (20 mg) IV SLOW PU SCH (10:14)
[2017-01-27] MEDS: Furosemide IV* 10 MG/ML VIAL (40 MG) IV SCH (10:14)
--- NOTE | 2017-01-27 10:57 | PN ---
Subjective Date of Service: 01/27/17 Interval History: Patient reports feeling well this am. She offers no acute complaints. No SOB, CP, abd pain, n/v. Tolerated a full breakfast this morning. Objective Active Medications: Acetaminophen (Tylenol Tab*) 650 mg PO Q6H PRN PRN Reason: FEVER Last Admin: 01/27/17 05:44 Dose: 650 mg Albuterol (Ventolin 2.5 Mg/3 Ml Neb.Maile*) 2.5 mg INH Q2H PRN PRN Reason: SOB/WHEEZING Last Admin: 01/25/17 05:40 Dose: 2.5 mg Famotidine (Pepcid Iv*) 20 mg IV SLOW PU BID [facility] Last Admin: 01/27/17 10:14 Dose: 20 mg Furosemide (Lasix Iv*) 40 mg IV DAILY [facility] Last Admin: 01/27/17 10:14 Dose: 40 mg Heparin Sodium (Porcine) (Heparin Vial(*)) 5,000 units SUBCUT Q8HR [facility] Last Admin: 01/27/17 05:45 Dose: 5,000 units Piperacillin Sod/Tazobactam (Sod 3.375 gm/ Sodium Chloride) 100 mls @ 25 mls/ hr IVPB 0100,0900,1700 [facility] Last Admin: 01/27/17 10:23 Dose: 25 mls/hr Ibuprofen (Motrin Tab*) 400 mg PO Q6H PRN PRN Reason: mild to moderate pain Lorazepam (Ativan Tab(*)) 1 mg PO DAILY PRN PRN Reason: ANXIETY Last Admin: 01/24/17 15:57 Dose: 1 mg Morphine Sulfate (Morphine Inj (Syringe)*) 2 mg IV Q1H PRN PRN Reason: PAIN Ondansetron HCl (Zofran Inj*) 4 mg IV Q6H PRN PRN Reason: NAUSEA Last Admin: 01/25/17 02:53 Dose: 4 mg Oxycodone/Acetaminophen (Percocet 5/325 Tab*) 1 tab PO Q4H PRN PRN Reason: PAIN Pharmacy Consult (Zosyn Per Pharmacy*) 1 note FOLLOW UP . PRN PRN Reason: PER PROTOCOL Potassium Chloride (Klor Con Er Tab*) 40 meq PO ONCE ONE Stop: 01/27/17 10:48 Vital Signs: Temp Pulse Resp BP Pulse Ox 98.6 F 64 18 127/56 94 01/27/17 07:43 01/27/17 07:43 01/27/17 07:43 01/27/17 07:43 01/27/17 07:43 Oxygen Devices in Use Now: None Appearance: Well appearing, in NAD. Accompanied by her and daughter this am. Respiratory: Symmetrical Chest Expansion and Respiratory Effort, Clear to Auscultation Cardiovascular: NL Sounds; No Murmurs; No JVD, RRR Abdominal: NL Sounds; No Tenderness; No Distention Extremities: No Edema Skin: No Rash or Ulcers Neurological: Alert and Oriented x 3 Result Diagrams: 01/26/17 04:43 01/27/17 04:51 Additional Lab and Data: Vital Signs: Temp Pulse Resp BP Pulse Ox 97.8 F 84 16 139/71 93 01/24/17 03:29 01/24/17 03:29 01/24/17 03:29 01/24/17 03:29 01/24/17 03:29 Diagnostic Imaging: CXR - pulm edema with bilateral effusions CT chest - no PE, moderate sized pleural effusions with possible infiltrate v atelectasis Assess/Plan/Problems-Billing Assessment: Ms. Treviño is a 62 yo female with a PMH of anxiety who was admitted on with acute appendicitis. Hospital Medicine consulted on 01/24/17 after an episode of confusion with tachypnea and mild hypoxia with concern for anxiety attack. - Patient Problems (1) Appendicitis Comment: S/P lap appy with Dr. Simental on 01/22/17 Post op management per surgery Plan for dc today (2) Pleural effusion Comment: CT confirms presence of moderate sized pleural effusions and pulm edema No clinical evidence of PNA Improved with IV Lasix (3) Delirium Comment: Resolved Intermittent confusion Patient has had little to no narcotics post operatively Hypoxia may have been contributing Continue to limit her ativan (4) Hypokalemia Comment: Repleting Likely due to IV loop diuretics (5) Anxiety Comment: Improved (6) DVT prophylaxis Comment: Heparin SQ. (7) Full code status Status and Disposition: Inpatient. Plan for dc today. No acute medical concerns. No need to cont Lasix/K supp at dc.
[2017-01-27] MEDS: KCL 10 MEQ/50 ML IVPREMIX* 10 MEQ/50 ML BAG IV SCH ×2 (11:14→11:15)
[2017-01-27 12:14] VITALS: BP 100/48
== END 2017-01-27 12:35 | disposition home or self-care (01) | DRG 339 ==
LOC: ED 13:32 → OR 18:30 → SSU 22:24 → OBSVTOIN 01-23 10:00
PROVIDERS: ADMIT Surgery; ATTEND Surgery
PROC: 0DTJ4ZZ Resection of Appendix, Percutaneous Endoscopic Approach (ICD-10-PCS; principal; 2017-01-22 19:00)
DX: K35.2 Acute appendicitis with generalized peritonitis (principal); J90 Pleural effusion, not elsewhere classified; K76.89 Other specified diseases of liver; F41.9 Anxiety disorder, unspecified; F32.9 Major depressive disorder, single episode, unspecified; E87.6 Hypokalemia; R41.0 Disorientation, unspecified; R06.00 Dyspnea, unspecified; R09.02 Hypoxemia; E87.70 Fluid overload, unspecified; T42.4X5A Adverse effect of benzodiazepines, initial encounter; Z23 Encounter for immunization; Z88.1 Allergy status to other antibiotic agents
CPT/HCPCS: 36415; 71010; 71020; 71275; 74177; 80048; 80053; 81003; 81015; 83605; 83690; 83735; 83880; 84100; 85025; 85610; 85730; 86140; 88304; 90686; 94640; 94760; A9270-GY; C1776; G0378; J1100; J1644; J1885; J1940; J2250; J2270; J2405; J2543; J2704; J3010; J3475; J3480; Q9967

== ENCOUNTER 2017-07-14 11:02 | Emergency (ER) | payer OTHER ==
[2017-07-14 13:43] LABS: ABS Basophils 0 10^3/ul (0-0.2); ABS Eosinophils 0.2 10^3/ul (0-0.6); ABS Lymphocytes 2.2 10^3/ul (1.0-4.8); ABS Monocytes 0.3 10^3/ul (0-0.8); ABS Nucleated RBC 0 10^3/ul; Eosinophil % 3.6 % (0-6); Hematocrit 37 % (35-47); Hemoglobin 12.8 g/dl (12.0-16.0); INR 1.02 (0.77-1.02); Lymphocyte % 46.3 % (25-47); Mean Corpuscular HGB Conc 34 g/dl (31-36); Mean Corpuscular Hemoglobin 30 pg (27-31); Mean Corpuscular Volume 87 fL (80-97); Mean Platelet Volume 7.4 um3 (7.4-10.4); Nucleated Red Blood Cells % 0.1; Platelet Count 185 10^3/ul (150-450); Red Cell Distribution Width 13 % (10.5-15); White Blood Count 4.7 10^3/ul (3.5-10.8)
[2017-07-14] MEDS ORDERED: Iohexol 350* (CONTRAST) 500 ML MDV IV ONE (14:04)
[2017-07-14] MEDS ORDERED: Ibuprofen TAB* 600 MG PO ONE (14:49)
--- NOTE | 2017-07-14 15:48 | RAD ---
CPT II: CPT II Codes: 3100F INDICATION: "Headache behind left eye" x4 days COMPARISON: None TECHNIQUE: Noncontrast CT of the brain was acquired. A CT angiogram of the head and neck was performed with 80 cc of Omnipaque 350. Contiguous axial sections were obtained from the thoracic inlet through the [place]. Images were reconstructed in the sagittal, coronal planes and in a 3-D volume rendered format. The distal cervical internal carotid artery diameter is used as the denominater for stenosis measurement. NONCONTRAST CT BRAIN: Noncontrast CT of the brain demonstrates symmetrical ventricles and sulci. The sherman-white matter differentiation is adequately maintained. There is no suspicious mass or mass effect. The paranasal sinuses are clear. The mastoid air cells are clear. CTA NECK: The common and internal carotid arteries are patent without hemodynamically significant stenosis. Right: Below the carotid bifurcation the right common carotid artery measures 7 mm in short axis diameter. Immediately above the bifurcation the right internal carotid artery measures 5 mm in diameter. This corresponds to approximately 29% degree stenosis. Left: Below the carotid bifurcation the common carotid artery measures 5 mm in diameter. There is coarse calcification at the carotid bifurcation but the short axis diameter of the right internal carotid artery is also 5 mm in diameter yielding 0% degree stenosis. The vertebral arteries are patent without gross abnormality. There is coarse calcification at the origin of the left subclavian artery extending from the arch of the aorta. This calcification causes streak artifact which combines with the streak artifact from the nearby left brachiocephalic vein to obscure luminal filling of the proximal left subclavian artery. CTA of the brain: The internal carotid, anterior and middle cerebral arteries appear are patent without high grade stenosis or occlusion. The vertebral, basilar and posterior cerebral arteries appear patent without high grade stenosis or occlusion. The superior most right vertebral artery is diminutive relative to the left but both are patent. The [place] is complete with bilateral posterior communicating arteries identified. No focal luminal filling defect, aneurysm or vascular malformation is seen. IMPRESSION: 1. Pawan necessary criteria there is approximately 29% degree stenosis at the right carotid bulb due to mixed attenuation atherosclerosis. 2. No acute arterial abnormalities including abrupt occlusion, aneurysmal dilatation or evidence of extravasation. 3. There is coarse atherosclerotic calcification at the origin of the left subclavian artery obscuring luminal filling of the artery. Please correlate to signs of left upper chest demonstrate any arterial insufficiency and/or subclavian steal syndrome. Clinically this would manifest as reduced blood pressures acquired in the left arm relative to the right. Clinical features of subclavian steal syndrome include dizziness and diplopia during utilization of the left upper extremity. 4. normal noncontrast CT of the brain including well aerated paranasal sinuses.
[2017-07-14 16:36] VITALS: BP 151/87
--- NOTE | 2017-07-14 20:23 | ED ---
Layne Medina Thomas, scribed for Liban Lundberg MD on 07/14/17 at 1254 . Headache - HPI Summary HPI Summary: The patient is a 62 year old female complaining of a headache for the last four days. The pain is located behind her left eye and it radiates upward. The pain is rated 7/10. The pain is aggravated by moving her head. She has been taking Tylenol to no relief of pain. The patient denies nausea, photophobia, nasal congestion, nasal discharge, eye watering, neck pain, numbness, and tingling. She had a similar headache a few months ago that lasted 4-5 days. - History Of Current Complaint Chief Complaint: EDHeadache Stated Complaint: HEADACHE-4 DAYS Hx Obtained From: Patient Onset/Duration: Started days ago, Still Present Currently Pain Is: Current Pain Scale(0-10)= - 7 Timing: Constant Location of Headache: Other: - Behind left eye Radiates to: Upward Aggravating Factor: Other - Moving her head Allevating Factors: Nothing Associated Signs And Symptoms: Other (Noted In Comments) - LYNCH; NEGATIVE: nausea , photophobia, nasal congestion, nasal discharge, eye watering, neck pain, numbness, and tingling - Allergies/Home Medications Allergies/Adverse Reactions: Allergies Allergy/AdvReac Type Severity Reaction Status Date / Time clarithromycin [From Biaxin] AdvReac Nausea Verified 07/14/17 11:27 Home Medications: Home Medications NK [No Home Medications Reported] 07/14/17 [History Confirmed 07/14/17] PMH/Surg Hx/FS Hx/Imm Hx Endocrine/Hematology History: Denies: Hx Anticoagulant Therapy, Hx Blood Disorders, Hx Blood Transfusions, Hx Bone Marrow Disease, Hx Diabetes, Hx Sickle Cell Disease, Hx Anemia, Hx Unexplained Bleeding Cardiovascular History: Reports: Other Cardiovascular Problems/Disorders - possible mitral valve prolapse Denies: Hx Aneurysm, Hx Angina, Hx Angioplasty, Hx Auto Implanted Cardiovert Defib, Hx Cardiac Arrest Respiratory History: Denies: Hx Asthma, Hx Chronic Bronchitis, Hx Chronic Obstructive Pulmonary Disease (COPD), Hx Cystic Fibrosis, Hx Lung Cancer, Hx Pleural Effusion, Hx Pneumonia, Hx Pulmonary Edema, Hx Pulmonary Embolism, Hx Seasonal Allergies, Hx Sleep Apnea GI History: Denies: Hx Cirrhosis, Hx Crohn's Disease, Hx Diverticulosis, Hx Gall Bladder Disease, Hx Gastroesophageal Reflux Disease, Hx Gastrointestinal Bleed, Hx Hiatal Hernia, Hx Irritable Bowel, Hx Jaundice, Hx Obstructive Bowel, Hx Ileostomy, Hx Pyloric Stenosis, Hx Ulcer History: Denies: Hx Acute Renal Failure, Hx Benign Prostatic Hyperplasia, Hx Chronic Renal Failure, Hx Dialysis, Hx Kidney Infection, Hx Kidney Stones Musculoskeletal History: Reports: Hx Back Problems Denies: Hx Arthritis, Hx Bursitis, Hx Congenital Bone Abnormalities, Hx Fibromyalgia, Hx Gout, Hx Orthopedic Injury, Hx Osteoporosis, Hx Scoliosis, Hx Tendonitis Sensory History: Reports: Hx Contacts or Glasses Denies: Hx Eye Injury, Hx Eye Prosthesis, Hx Glaucoma, Hx Legally Blind, Hx Macular Degeneration, Hx Vision Problem, Hx Deafness, Hx Hearing Aid, Hx Hearing Problem Opthamlomology History: Reports: Hx Contacts or Glasses Denies: Hx Eye Injury, Hx Eye Prosthesis, Hx Glaucoma, Hx Legally Blind, Hx Macular Degeneration, Hx Vision Problem Neurological History: Denies: Hx Dementia, Hx Headaches, Hx Migraine, Hx Nerve Disease, Hx Seizures , Hx Spinal Cord Injury, Hx Transient Ischemic Attacks (TIA) Psychiatric History: Reports: Hx Anxiety, Hx Depression Denies: Hx Attention Deficit Hyperactivity Disorder, Hx Eating Disorder, Hx Panic Disorder, Hx Post Traumatic Stress Disorder, Hx Inpatient Treatment, Hx Community Mental Health Tx, Hx Schizophrenia, Hx Bipolar Disorder, Hx Suicide Attempt, Hx of Violent Episodes Against Others, Hx Substance Abuse - Surgical History Surgery Procedure, Year, and Place: LAMINECTOMY L1 OR L2; D&C x2;. APPENDECTOMY Hx Anesthesia Reactions: No Infectious Disease History: No Infectious Disease History: Denies: Hx Hepatitis, Hx Tuberculosis, Traveled Outside the [place] in Last 30 Days - Family History Known Family History: Positive: Hypertension - Social History Alcohol Use: Occasionally Substance Use Type: Reports: None Smoking Status (MU): Never Smoked Tobacco Review of Systems Negative: Fever Negative: Photophobia, Other - eye watering Negative: Nasal Discharge, Other - nasal congestion Negative: Nausea Negative: Other - neck pain Neurological: Other - NEGATIVE: numbness, tingling Positive: Headache All Other Systems Reviewed And Are Negative: Yes Physical Exam - Summary Physical Exam Summary: Appearance: The patient is well-nourished in no acute distress and in no acute pain. Skin: The skin is warm and dry and skin color reflects adequate perfusion. HEENT: The head is normocephalic and atraumatic. The pupils are equal and reactive. The fundi appear normal. The conjunctivae are clear and without drainage. Nares are patent and without drainage. The sinuses transilluminate. Mouth reveals moist mucous membranes and the throat is without erythema and exudate. The external ears are intact. The ear canals are patent and without drainage. The tympanic membranes are intact. Neck: the neck is supple with full range of motion and non-tender. There are no carotid bruits. There is no neck vein distension. Respiratory: Chest is non-tender. Lungs are clear to auscultation and breath sounds are symmetrical and equal. Cardiovascular: Heart is regular rate and rhythm. There is no murmur or rub auscultated. There is no peripheral edema and pulses are symmetrical and equal. Abdomen: The abdomen is soft and non-tender. There are normal bowel sounds heard in all four quadrants and there is no organomegaly palpated. Musculoskeletal: There is no back tenderness noted. Extremities are non-tender with full range of motion. There is good capillary refill. There is no peripheral edema or calf tenderness elicited. Neurological: Patient is alert and oriented to person, place and time. The patient has symmetrical motor strength in all four extremities. There are not any meningeal signs. Cranial nerves are grossly intact. Deep tendon reflexes are symmetrical and equal in all four extremities. Psychiatric: The patient has an appropriate affect and does not exhibit any anxiety or depression. Triage Information Reviewed: Yes Vital Signs On Initial Exam: Initial Vitals Temp Pulse Resp BP Pulse Ox 97.9 F 72 16 160/72 99 07/14/17 11:23 07/14/17 11:23 07/14/17 11:23 07/14/17 11:23 07/14/17 11:23 Vital Signs Reviewed: Yes Diagnostics - Vital Signs Vital Signs Temp Pulse Resp BP Pulse Ox 07/14/17 11:23 97.9 F 72 16 160/72 99 - Laboratory Lab Results: Lab Results 07/14/17 07/14/17 07/14/17 Range/Units 13:31 13:31 13:31 WBC 4.7 (3.5-10.8) 10^3/ul RBC 4.30 (4.0-5.4) 10^6/ul Hgb 12.8 (12.0-16.0) g/dl Hct 37 (35-47) % MCV 87 (80-97) fL MCH 30 (27-31) pg MCHC 34 (31-36) g/dl RDW 13 (10.5-15) % Plt Count 185 (150-450) 10^3/ul MPV 7.4 (7.4-10.4) um3 Neut % (Auto) 42.4 (38-83) % Lymph % (Auto) 46.3 (25-47) % [place] % (Auto) 6.8 (0-7) % Eos % (Auto) 3.6 (0-6) % Baso % (Auto) 0.9 (0-2) % Absolute Neuts (auto) 2.0 (1.5-7.7) 10^3/ul Absolute Lymphs (auto) 2.2 (1.0-4.8) 10^3/ul Absolute Monos (auto) 0.3 (0-0.8) 10^3/ul Absolute Eos (auto) 0.2 (0-0.6) 10^3/ul Absolute Basos (auto) 0 (0-0.2) 10^3/ul Absolute Nucleated RBC 0 10^3/ul Nucleated RBC % 0.1 INR (Anticoag Therapy) 1.02 (0.77-1.02) Sodium 138 L (139-145) mmol/L Potassium 4.2 (3.5-5.0) mmol/L Chloride 104 (101-111) mmol/L Carbon Dioxide 27 (22-32) mmol/L Anion Gap 7 (2-11) mmol/L BUN 11 (6-24) mg/dL Creatinine 0.95 (0.51-0.95) mg/dL Est GFR ( Amer) 77.2 (>60) Est GFR (Non-Af Amer) 60.0 (>60) BUN/Creatinine Ratio 11.6 (8-20) Glucose 96 (70-100) mg/dL Calcium 9.3 (8.6-10.3) mg/dL Total Bilirubin 0.30 (0.2-1.0) mg/dL AST 21 (13-39) U/L ALT 15 (7-52) U/L Alkaline Phosphatase 62 (34-104) U/L C-Reactive Protein < 1.00 (< 5.00) mg/L Total Protein 6.8 (6.4-8.9) g/dL Albumin 4.1 (3.2-5.2) g/dL Globulin 2.7 (2-4) g/dL Albumin/Globulin Ratio 1.5 (1-3) Result Diagrams: 07/14/17 13:31 07/14/17 13:31 Lab Statement: Any lab studies that have been ordered have been reviewed, and results considered in the medical decision making process. - CT CTA Head/Neck CT Interpretation: No Acute Changes - IMPRESSION: 1. Pawan necessary criteria there is approximately 29% degree stenosis at the right carotid bulb due to mixed attenuation atherosclerosis. 2. No acute arterial abnormalities including abrupt occlusion, aneurysmal dilatation or evidence of extravasation. 3. There is coarse atherosclerotic calcification at the origin of the left subclavian artery obscuring luminal filling of the artery. Please correlate to signs of left upper chest demonstrate any arterial insufficiency and/or subclavian steal syndrome. Clinically this would manifest as reduced blood pressures acquired in the left arm relative to the right. Clinical features of subclavian steal syndrome include dizziness and diplopia during utilization of the left upper extremity. 4. normal noncontrast CT of the brain including well aerated paranasal sinuses. Dr. Lundberg has reviewed this report. CT Interpretation Completed By: Radiologist Headache Course/Dx - Course Course Of Treatment: Ms. Weiss presented with an unusual LYNCH that was left- sided only, behind her left eye. She described it as throbbing but has no photophobia or nausea. It is aggravated by changing position but the ultimate position doesn't matter. Her W/U was negative including CTA. I recommended symptomatic treatment and close F/U. - Diagnoses Provider Diagnoses: Headache Discharge - Sign-Out/Discharge Documenting (check all that apply): Discharge/Admit/Transfer - Discharge Plan Condition: Stable Disposition: HOME Patient Education Materials: General Headache (ED) Referrals: Leanna Espinal MD [Primary Care Provider] - 3 Days Additional Instructions: Follow up with Dr. Espinal in three days. Return to the emergency department for any new or worsening symptoms. - Billing Disposition and Condition Condition: STABLE Disposition: HOME The documentation as recorded by the Layne harris Thomas accurately reflects the service I personally performed and the decisions made by , Liban Lundberg MD.
== END 2017-07-14 16:31 | disposition home or self-care (01) ==
LOC: ED 11:02
DX: R51 Headache (principal)
CPT/HCPCS: 36415; 70496; 70498; 80053; 85025; 85610; 86140; 99282; A9270-GY; Q9967